=== PATIENT | female | born 1955 | race Caucasian/White ===

== ENCOUNTER 2017-09-22 17:08 | Inpatient (IN) | payer BC ==
--- NOTE | 2017-09-22 18:09 | CT ---
CT BRAIN: History: Fall with head injury and trauma. Technique: Noncontrast enhanced CT images of the brain were obtained. FINDINGS: The images demonstrate a moderate sized left frontal scalp hematoma. No underlying calvarial fracture s seen. The brain is unremarkable. No evidence of intracranial masses, hemorrhages or strokes seen. IMPRESSION: Left frontal scalp hematoma. Otherwise unremarkable CT brain. POS: [facility]
--- NOTE | 2017-09-22 18:25 | CT ---
CT CERVICAL SPINE: History: Fall with head trauma. Neck pain. FINDINGS: CT axial images are obtained with coronal and sagittal reconstructions obtained. There is disc space height loss with anterior and posterior osteophytes seen at C3-4, C4-5, C5-6, and C6-7. This is compatible with changes of spondylosis. No evidence of acute cervical spine fractures seen. IMPRESSION: Changes of spondylosis with no evidence of acute cervical spine pathology. The patient has had previo us surgical decompression of the mid and lower cervical spine. POS: [facility]
--- NOTE | 2017-09-22 19:07 | RAD ---
TWO VIEWS RIGHT SHOULDER: History: Fall. FINDINGS: AP and lateral images demonstrate a right humeral neck fracture. There is posterior angulation and so me lateral angulation of the distal fracture fragment. IMPRESSION: Right humeral neck fracture with impaction into the right humeral head. POS: [facility]
--- NOTE | 2017-09-22 19:08 | RAD ---
TWO VIEWS LEFT SHOULDER: History: Fall. Shoulder pain. FINDINGS: AP and lateral views of the left shoulder demonstrate a comminuted fracture involving the left jose l head and neck. The greater tuberosity is avulsed away from the rest of the left humeral head. The clavicle is intact. IMPRESSION: Comminuted left humeral head fracture. POS: [facility]
[2017-09-22] MEDS ORDERED: Morphine 4 MG/ML VIAL ONE (20:02)
[2017-09-22] MEDS ORDERED: Ketorolac Tromethamine 30 MG/ML VIAL ONE (20:30)
[2017-09-22] MEDS ORDERED: Ondansetron ODT 4 MG TAB PO PRN (22:01)
[2017-09-22] MEDS ORDERED: Ondansetron HCl/PF 4 MG/2 ML Vial IVP PRN (22:01)
[2017-09-22] MEDS ORDERED: hydrALAZINE 20 MG/ML VIAL SLOW IVP PRN (22:01)
[2017-09-22] MEDS ORDERED: HYDROcodone/Acetaminophen 10/325 mg Tablet PO PRN (22:01)
[2017-09-22] MEDS ORDERED: Dextrose 50% Abboject 50 ML SYRINGE SLOW IVP PRN (22:01)
[2017-09-22] MEDS ORDERED: Dextrose 5% in Water 1,000 ML IV PRN (22:01)
--- NOTE | 2017-09-22 22:03 | HP ---
DATE OF ADMISSION: 09/22/2017 REQUESTING PHYSICIAN: Dr. Morrell. ATTENDING SURGEON: Dr. Taylor. CONSULTATION: Orthopedics, Dr. Grier. HISTORY OF PRESENT ILLNESS: Patient is a 62-year-old morbidly obese woman who was walking in her alyson se when she tripped and fell, landing on her upper extremities. The patient had put both her arms ou t in front of her and landed on her elbows. The patient also reports hitting leg of a table on the w ay down hitting her head, but denied any loss of consciousness. The patient was brought by EMS to [facility] emergency room and underwent evaluation and examination was noted to have bilateral proximal jose l fractures, at which time we were asked to admit the patient and obtain Orthopedic consultation. ALLERGIES: ASPIRIN, the patient has taken IBUPROFEN in the past without difficulty. CURRENT MEDICATIONS: Alprazolam, atenolol, levothyroxine, Xarelto, Dyazide. PAST MEDICAL HISTORY: Atrial fibrillation, hypothyroidism, hypertension, anxiety, and depression. PAST SURGICAL HISTORY: Spinal surgery, hernia repair, appendectomy, and . SOCIAL HISTORY: Patient lives at home with her . She denies drug, tobacco, or alcohol use. REVIEW OF SYSTEMS: Ten-point review of systems is negative, unless otherwise stated. PHYSICAL EXAMINATION: VITAL SIGNS: Blood pressure 106/71, heart rate 92, respirations 17, oxygen saturation 100% on room a ir, temperature is 98.8. GENERAL: Patient is resting comfortably in bed. She is awake, alert, and oriented x3. [place] coma scale is 15. HEENT: Patient has a small contusion in ecchymotic area and the left side of her forehead, otherwise remainder is normocephalic. Eyes: Extraocular motions intact. PERRLA bilaterally. Ears are atrau matic without discharge. Nose atraumatic without discharge. Oropharynx is clear. NECK: Nontender. Trachea is midline. No JVD. CHEST: Clear to auscultation with good inspiratory and expiratory effort. HEART: Primarily regular rate and rhythm. ABDOMEN: Soft, flat, nontender with active bowel sounds. PELVIC: Stable. EXTREMITIES: Lower extremities are neurovascularly intact. Upper extremities are neurovascularly in tact with marked tenderness to both proximal humerus/shoulder area consistent with her fractures. Ca pillary refill in all extremities less than 3 seconds and pulses are 2+. BACK: By report is atraumatic and nontender. LABORATORY DATA: There are no labs currently. RADIOGRAPHS: CT of the brain without contrast shows left frontal scalp hematoma, otherwise unremarka ble CT of the brain. CT of the C-spine without contrast shows no evidence of acute cervical spine pa thology. Views of the right shoulder showed right humeral neck fracture with impaction into the righ t humeral head. Views of the left shoulder showed comminuted left humeral head fracture. ASSESSMENT AND PLAN: 1. Status post ground level fall. 2. Forehead contusion. 3. Bilateral proximal humerus fractures. 4. Pain secondary to acute trauma. 5. History of atrial fibrillation on Xarelto. 6. History of hypertension. 7. History of hypothyroidism. PLAN: Plan will be to admit the patient to the surgical floor. The patient's radiographs are review ed by Dr. Grier who states that due to her Xarelto and for planning stages, they were not planned on doing surgery tomorrow but most likely on Saturday. Otherwise, we will do pulmonary toilet, gastri tis, mechanical DVT prophylaxis, pain control, and physical and occupational therapy as permitted. T he evaluation, examination, laboratory and radiographic findings were discussed with Dr. Taylor at t he time of dictation.
[2017-09-22] MEDS: Sodium Chloride 0.9% 1,000 ML IV SCH (22:43)
[2017-09-22] MEDS: Morphine 4 MG/ML VIAL SLOW IVP PRN (22:44)
[2017-09-22] MEDS: Cyclobenzaprine 10 MG TAB PO PRN (22:44)
[2017-09-22] MEDS ORDERED: Acetaminophen 1,000 MG in Premix Bag 1 BAG IVPB SCH (23:59)
[2017-09-23] MEDS: Ibuprofen 800 MG TAB PO SCH ×4 (01:31→21:27)
[2017-09-23 01:38] VITALS: BMI 56.5
[2017-09-23] MEDS: Acetaminophen 500 MG TAB PO SCH ×6 (02:16→21:27)
[2017-09-23 05:02] LABS: #Eosinphils 0.1 thou/uL (0.0-0.7); #Lymphocytes 2.1 thou/uL (1.20-3.40); #Monocytes 1.2 thou/uL (0.11-0.59); #Neutrophils 8.8 thou/uL (1.40-6.50); %Basophils 0.1 % (0.0-1.0); %Eosinophils 0.5 % (0.0-10.0); %Lymphocytes 17.3 % (21.0-51.0); %Monocytes 10.1 % (0.0-10.0); Hemoglobin 12.4 g/dL (12.0-16.0); Mean Corpuscular HGB CONC 33.8 g/dL (32.0-36.0); Mean Corpuscular Hemoglobin 31.9 pg (27.0-31.0); Mean Corpuscular Volume 94.5 fl (81.0-99.0); Mean Platelet Volume 6.4 fL (7.4-10.4); Platelet Count 280 thou/uL (130-400); RBC Distribution Width 13.3 % (11.5-14.5); White Blood Cell (WBC) Count 12.3 thou/uL (4.8-10.8)
[2017-09-23 05:18] LABS: Anion Gap 9 mmol/L (10-20); BUN (Urea Nitrogen) 20 mg/dL (9.8-20.1); Calc. Creatinine Clearance 89 mL/min (70-130); Calcium 8.6 mg/dL (7.8-10.44); Carbon Dioxide 28 mmol/L (23-31); Chloride 100 mmol/L (98-107); Estimated GFR-MDRD 35; Glucose 121 mg/dL (80-115); Potassium 3.3 mmol/L (3.5-5.1); Sodium 134 mmol/L (136-145)
[2017-09-23] MEDS: Levothyroxine Sodium 100 MCG TAB PO SCH (06:15)
[2017-09-23] MEDS: Morphine 4 MG/ML VIAL SLOW IVP PRN ×2 (06:16→09:57)
[2017-09-23] MEDS: HYDROcodone/Acetaminophen 10/325 mg Tablet PO PRN ×2 (06:38→12:57)
--- NOTE | 2017-09-23 08:08 | CON ---
DATE OF CONSULTATION: 09/23/2017 CHIEF COMPLAINT: Bilateral shoulder pain. HISTORY OF PRESENT ILLNESS: Ms. Alejandro is a 62-year-old female who fell at home. She was ambulating and lost her balance. She fell forward. She landed on her outstretched arms. She had immediate gabbie n in the arms at the shoulders. She was unable to elevate or move the arms well after her fall. She did hit her head as well on the leg of a table. She denied loss of consciousness. She denied any d izziness. The patient was admitted to the hospital last night. She has had pain control. She is resting comfo rtably. She is reporting no new complaints or problems. ALLERGIES: ASPIRIN. MEDICATIONS: Alprazolam, atenolol, levothyroxine, Xarelto and Dyazide. PAST MEDICAL HISTORY: Atrial fibrillation, hypothyroidism, hypertension, anxiety, depression, and mo rbid obesity. PAST SURGICAL HISTORY: Previous lumbar spinal surgery, hernia repair, appendectomy and sect ion. SOCIAL HISTORY: The patient's is at the bedside. She denies tobacco, alcohol, or drug use. REVIEW OF SYSTEMS: Negative for 10 point review of systems other than positives in the HPI. IMAGES: X-rays of the bilateral shoulders demonstrate bilateral comminuted and displaced proximal hu merus fractures, 3-part. PHYSICAL EXAMINATION: VITAL SIGNS: Temperature is 97.7, pulse is 92, respiratory 16, oxygen saturation 95%, blood pressure 117/73. GENERAL: She is alert and oriented, no apparent distress. RESPIRATORY: Breathing comfortably. ABDOMEN: Soft, nontender, nondistended. MUSCULOSKELETAL: The patient's bilateral arms have pain with motion in the shoulders. She has swell ing. She has a very large obese arms and trunk. She reports decreased sensation in the first, secon d, and third digits bilaterally. This is chronic for her. She has a history of carpal tunnel syndro me. Palpable pulse peripherally bilaterally. She is able flex and extend the digits. IMPRESSION: Bilateral comminuted and displaced proximal humerus fractures in an obese female. The p atient also has a history of chronic bilateral carpal tunnel syndrome. PLAN: At this point, I think the patient would best be treated operatively. We will plan for open r eduction internal fixation of her proximal humerus fractures to restore anatomic alignment and promot e healing. Goal of surgery is to return her shoulders to full function. I have reviewed risks which include wound or healing problems. Avascular necrosis. Hardware failure, nonunion, malunion and ot hers. She is at risk for a pulmonary or cardiac complication as well. She wants to proceed with anabelle ateral proximal humerus fracture fixation as well as carpal tunnel release. She has requested that w elisha release her carpal tunnels given that she has longstanding chronic symptoms and these are very both ersome for her. I think this is warranted given that her carpal tunnel syndrome will likely get wors e over the next several months because she will have significant swelling into the wrist and hands re lated to her recent injury. She will decide if she wants to proceed with bilateral carpal tunnel rel ease, or pick one hand. I encouraged her to do 1 hand only, so that she has 1 good hand to use. She should be n.p.o. at midnight. She will have adequate pain control. She will have preoperative anti biotics and deep venous thrombosis prophylaxis. We will hold Xarelto until postoperatively.
[2017-09-23] MEDS: Atenolol 50 MG TAB PO SCH (09:56)
[2017-09-23] MEDS: Triamterene/Hydrochlorothiazide 37.5 mg/25 mg Tablet PO SCH (09:56)
[2017-09-23] MEDS: Venlafaxine HCl XR 150 MG CAP PO SCH (09:57)
[2017-09-23] MEDS: Famotidine 20 MG TAB PO SCH ×2 (09:57→21:27)
[2017-09-23] MEDS: Nystatin Cream 30 GM TUBE TOP SCH ×2 (09:59→21:27)
[2017-09-23] MEDS: Sodium Chloride 0.9% 1,000 ML IV SCH (10:03)
--- NOTE | 2017-09-23 13:58 | PRG ---
DATE OF SERVICE: 09/23/2017 SUBJECTIVE: The patient is hospital day #2 status post ground level fall which she sustained bilater al proximal humerus fractures. The patient did well overnight, had evaluation by Orthopedics this mo rning who recommend operative intervention on one of her shoulders initially. This morning, the awais ent is tolerating a diet. Her pain is controlled and she is due to work with Physical and Occupation al Therapy this morning. OBJECTIVE: VITAL SIGNS: Temperature is 97.7, heart rate 64, respirations 24, oxygen saturation is 94% on room a ir, blood pressure 117/73. GENERAL: The patient is resting comfortably in bed. She is awake, alert, oriented x3. [place] coma scale is 15. LUNGS: Clear to auscultation with good inspiratory and expiratory effort. HEART: Regular rate and rhythm. ABDOMEN: Soft, flat, nontender with active bowel sounds. EXTREMITIES: Neurovascularly intact. Capillary refill is less than 3 seconds. LABORATORY FINDINGS: White blood cell count 12.3, hemoglobin 12.4, hematocrit 36.9, platelets 280. Sodium 134, potassium 3.3, chloride 100, CO2 of 28, BUN 20, creatinine 1.50, glucose 121. No radiogr aphs to review this morning. ASSESSMENT: 1. Status post ground level fall. 2. Bilateral proximal humerus fractures. 3. Atrial fibrillation, rate controlled. PLAN: We will continue supportive care, make n.p.o. after midnight. IV hydration after midnight. C ontinue pain control and other supportive measures with rehab consultation submitted. The evaluation and examination were done with Dr. Lindsey this morning during rounds.
[2017-09-23] MEDS: Cyclobenzaprine 10 MG TAB PO PRN (15:43)
[2017-09-24] MEDS: Acetaminophen 500 MG TAB PO SCH ×7 (01:23→23:08)
[2017-09-24] MEDS: Sodium Chloride 0.9% 1,000 ML IV SCH ×3 (01:25→16:44)
[2017-09-24] MEDS: Morphine 4 MG/ML VIAL SLOW IVP PRN (04:47)
[2017-09-24] MEDS: HYDROcodone/Acetaminophen 10/325 mg Tablet PO PRN (04:47)
[2017-09-24] MEDS: Levothyroxine Sodium 100 MCG TAB PO SCH (05:15)
[2017-09-24] MEDS ORDERED: ePHEDrine/0.9% NaCl/PF SYRINGE 50 mg/10 ml ONE (06:52)
[2017-09-24] MEDS ORDERED: Calcium Chloride 1 GM/10 ML Abboject SYRINGE ONE (06:52)
[2017-09-24] MEDS ORDERED: PROPOFOL 200 MG/20 ML VIAL ONE (06:52)
[2017-09-24] MEDS ORDERED: Lidocaine 1% PF 5 ML VIAL ONE (06:52)
[2017-09-24] MEDS ORDERED: Glycopyrrolate 0.2 MG/ML 5 ML SYRINGE ONE (06:52)
[2017-09-24] MEDS ORDERED: PHENYLEPHRINE-NS 100 MCG/ML 10 ML SYRINGE ONE (06:52)
[2017-09-24] MEDS: Ibuprofen 800 MG TAB PO SCH ×3 (07:00→22:57)
[2017-09-24] MEDS: Nystatin Cream 30 GM TUBE TOP SCH ×2 (08:23→23:03)
[2017-09-24] MEDS: Venlafaxine HCl XR 150 MG CAP PO SCH (08:25)
[2017-09-24] MEDS: Famotidine 20 MG TAB PO SCH ×2 (08:26→22:57)
[2017-09-24] MEDS: Atenolol 50 MG TAB PO SCH (11:17)
[2017-09-24] MEDS: Triamterene/Hydrochlorothiazide 37.5 mg/25 mg Tablet PO SCH (11:17)
[2017-09-24] MEDS ORDERED: CEFAZOLIN/Water 2 GM/20 ML SYRINGE SLOW IVP SCH (12:00)
--- NOTE | 2017-09-24 12:07 | PQF ---
CLINICAL DOCUMENTATION IMPROVEMENT CLARIFICATION FORM: ICD-10 Updated PLEASE DO AN ADDENDUM TO THE PROGRESS NOTE WITH ANY DOCUMENTATION UPDATES OR ADDITIONS AND CARRY THROUGH TO DC SUMMARY. THANK YOU. DATE: 09/24 ATTN: HAFSA LOPEZ PA-C Please exercise your independent, professional judgment in responding to the clarification form. Clinical indicators are provided on the bottom of this form for your review Please check appropriate box(s): ___X____ I (concur) with the Wound Care findings as stated below. [ ] Pressure Ulcer: (Stage I: Erythema; Stage II: Partial thickness; Stage III : Full thickness; Stage IV: Necrosis to muscle/bone) [ ] Location: POA: [ ] Yes [ ] No [ ] Unable to determine Stage (I to IV): (Left Right Bilateral N/A ) [ ] Location: POA: [ ] Yes [ ] No [ ] Unable to determine Stage (I to IV): (Left Right Bilateral N/A ) [ ] No pressure ulcer diagnosis [ ] Other diagnosis [ ] Unable to determine In addition, please specify: Present on Admission (POA): [ ] Yes [ ] No [ X ] Unable to determine For continuity of documentation, please document condition throughout progress notes and discharge summary. Thank You. CLINICAL INDICATORS - SIGNS / SYMPTOMS / LABS WOUND CARE DOCUMENTATION 09/23: STAGE II PRESSURE ULCER TO RIGHT & LEFT BUTTOCKS RISK FACTOR: MORBID OBESITY (BMI 56.5) B PROXIMAL HUMERUS FX TREATMENTS: WOUND CARE CONSULT SPECIALTY MATTRESS THANK YOU! Val (This form is maintained as a part of the permanent medical record) 2014 [employer]. All Rights Reserved Val Cook RN, BSN [email or web address] Office: [phone] [facility]
[2017-09-24] MEDS ORDERED: CEFAZOLIN/Water 2 GM/20 ML SYRINGE ONE (16:08)
[2017-09-24] MEDS ORDERED: Fentanyl 250 MCG/5 ML VIAL ONE (16:26)
[2017-09-24] MEDS ORDERED: Midazolam HCl 2 mg/2 ml Vial ONE (16:26)
[2017-09-24] MEDS ORDERED: HYDROmorphone 2 MG/ML VIAL SLOW IVP PRN (18:50)
[2017-09-24] MEDS ORDERED: Ondansetron HCl/PF 4 MG/2 ML Vial IVP PRN (18:50)
[2017-09-24] MEDS ORDERED: Morphine Sulfate 2 MG/ML SYRINGE SLOW IVP PRN (18:50)
[2017-09-24] MEDS ORDERED: Promethazine HCl 25 MG/ML VIAL SLOW IVP PRN (18:50)
--- NOTE | 2017-09-24 19:23 | PRG ---
DATE OF SERVICE: 09/24/2017 SUBJECTIVE: The patient is hospital day 3 status post ground-level fall in which she sustained a anabelle ateral proximal humerus fractures. Overnight, she had no issue. She stated that her pain was contro lled. She has been n.p.o. since midnight in preparation for surgical intervention by Orthopedics thi s afternoon. OBJECTIVE: VITAL SIGNS: Temperature is 97.5, heart rate 75, blood pressure 102/68, respirations 16, oxygen satu ration 94% on room air. GENERAL: The patient is resting comfortably in bed. She is awake, alert, oriented x3. [place] coma scale is 15. HEENT: Unremarkable. LUNGS: Clear to auscultation with good inspiratory and expiratory effort. HEART: Regular rate and rhythm. ABDOMEN: Soft, flat, nontender with hypoactive bowel sounds. EXTREMITIES: Neurovascularly intact x4. LABORATORY DATA: There are no labs or radiographs to review this morning. ASSESSMENT AND PLAN: 1. Status post ground-level fall. 2. Status post bilateral proximal humerus fractures. PLAN: Plan will be to continue supportive care. Await surgical procedure by Orthopedics. Begin phy sical and occupational therapy and we discussed possible rehab placement postoperatively.
--- NOTE | 2017-09-24 20:51 | RAD ---
LEFT HUMERUS RADIOGRAPHS TWO VIEWS: 09/24/2017 PROVIDED CLINICAL HISTORY: ORIF. FINDINGS: Spot fluoroscopic intra-procedural views of the left proximal humerus demonstrate sideplate and screw fixation of the previously described left proximal humeral fracture. IMPRESSION: As above. POS: [facility]
--- NOTE | 2017-09-24 21:01 | RAD ---
PORTABLE CHEST: 09/24/2017 PROVIDED CLINICAL HISTORY: Central line placement. COMPARISON: None. FINDINGS: The cardiac silhouette appears enlarged. A right IJ central line is noted, the tip of which projects in the region of the SVC. No definite focal consolidation, pleural fluid, or pneumothorax apparent. IMPRESSION: Cardiomegaly without evidence for an acute cardiopulmonary process. POS: [facility]
--- NOTE | 2017-09-24 21:55 | RAD ---
RIGHT SHOULDER RADIOGRAPHS TWO VIEWS: 09/24/2017 PROVIDED CLINICAL HISTORY: ORIF. FINDINGS: Spot fluoroscopic intra-procedural images demonstrate lateral sideplate and screw fixation of the pre viously described humeral fracture. IMPRESSION: As above. POS: [facility]
--- NOTE | 2017-09-24 23:50 | OP ---
DATE OF OPERATION: 09/24/2017 OPERATIONS: 1. Right proximal humerus fracture, open reduction and internal fixation. 2. Right carpal tunnel release. 3. Left proximal humerus fracture, open reduction and internal fixation. PREOPERATIVE DIAGNOSES: Bilateral proximal humerus fracture with displacement and right carpal tunne l syndrome. POSTOPERATIVE DIAGNOSES: Bilateral proximal humerus fracture with displacement and right carpal tunn el syndrome. COMPLICATIONS: None. ESTIMATED BLOOD LOSS: 200 mL. SURGEON: Landry Georges M.D. GROCERY BAGGER: Nikhil Mercado PA-C IMPLANTS: Two Synthes 3-hole proximal humeral plates with locking and nonlocking screws were used. INDICATIONS: Ms. Alejandro is a 62-year-old female who fell. She fractured bilateral proximal humerus. She also has a long history of carpal tunnel syndrome with severe symptoms. She has been indicated for right carpal tunnel release and bilateral proximal humerus fracture, open reduction and internal fixation to restore anatomic alignment, promote healing and relief pain. Risks have been reviewed in detail. She has elected to proceed with the operation. Risks to include avascular necrosis, hardwa re failure, nonunion, malunion, nerve or vascular injury and others. DESCRIPTION OF PROCEDURE: Ms. Alejandro was identified in the preoperative holding area. Her correct ex tremities were marked. She was carried to the operating room. She was positioned supine. General a nesthesia was induced. A multidisciplinary timeout was performed. The right upper extremity was pre pped and draped in sterile fashion. We began the procedure with a deltopectoral approach to the humerus. We then dissected down through the subcutaneous tissues to the deltopectoral interval, which was opened bluntly. We retracted the d eltoid muscle laterally carefully protecting the cephalic vein. At this point, we exposed the underl nati proximal humerus fracture. We manipulated the fracture fragments after irrigating and clearing the bony edges. Once we had an anatomic reduction, we held this with K-wire fixation. We then appli ed our proximal humeral plate to the humerus itself and held these with K-wires. We took x-ray image s evaluating her fracture alignment. Once we had an acceptable position for our plate, we proceeded with fixation. We placed multiple screws proximally and distally, locking the plate to the bone. Ag ain, we took x-ray images throughout this procedure confirming there was no prominent hardware. At t his point, we thoroughly irrigated and began closure. A 0 Vicryl suture was used. A 2-0 Vicryl sutu re and italo for the skin. At this point, we moved to the hand. We made a 2.5 cm incision over the palm. We dissected down thr ough the subcutaneous tissues to the fascia of the palm. The palmar fascia was incised. We then spl it the carpal tunnel ligament sharply with a 15 blade. At this point, we used Metzenbaum scissors to transect the carpal tunnel ligament proximally using a push-cut technique. We spread the tissues di stally fully releasing the carpal tunnel. We thoroughly irrigated and obtained hemostasis. We then closed with a 4-0 nylon suture. We then moved to the left proximal humerus fracture. We made a deltopectoral approach. We dissected down through the deltopectoral interval, protecting the cephalic vein. We exposed the underlying pr oximal humerus fracture. There were multiple comminuted fragments. At this point, we manipulated ou r fragments as well as pulling traction on the limb to reduce the fracture back into its anatomic pos ition. We then placed a Synthes locking plate laterally on the cortex of the humerus. We held this in position with a K-wire. We placed a distal nonlocking screw. At this point, we checked x-ray harmony ging confirming plate placement and hardware as well as fracture alignment. We then filled all screw holes appropriately with locking screws. We took final images confirming there was no hardware prom inent. At this point, we thoroughly irrigated with copious lavage. We then closed with 2-0 suture, 0 Vicryl suture and italo for the skin. A sterile dressing was applied. The patient was taken to the recovery room in good condition without complication at this point.
[2017-09-25] MEDS: CEFAZOLIN/Water 2 GM/20 ML SYRINGE SLOW IVP SCH ×3 (00:17→16:16)
[2017-09-25] MEDS: Sodium Chloride 0.9% 1,000 ML IV SCH ×4 (00:18→22:48)
[2017-09-25] MEDS: Acetaminophen 500 MG TAB PO SCH ×6 (03:46→22:42)
[2017-09-25 04:13] LABS: #Lymphocytes 1.3 thou/uL (1.20-3.40); #Neutrophils 10.6 thou/uL (1.40-6.50); %Eosinophils 0.3 % (0.0-10.0); %Lymphocytes 10.4 % (21.0-51.0); %Monocytes 7.7 % (0.0-10.0); %Neutrophils 81.6 % (42.0-75.0); Hemoglobin 10.8 g/dL (12.0-16.0); Mean Corpuscular HGB CONC 34.4 g/dL (32.0-36.0); Mean Corpuscular Hemoglobin 32.6 pg (27.0-31.0); Mean Corpuscular Volume 94.9 fl (81.0-99.0); Mean Platelet Volume 6.4 fL (7.4-10.4); Platelet Count 285 thou/uL (130-400); RBC Distribution Width 13.1 % (11.5-14.5); Red Blood Cell (RBC) Count 3.29 mill/uL (4.20-5.40); White Blood Cell (WBC) Count 12.9 thou/uL (4.8-10.8)
[2017-09-25 04:55] LABS: Anion Gap 9 mmol/L (10-20); BUN (Urea Nitrogen) 28 mg/dL (9.8-20.1); Calc. Creatinine Clearance 48 mL/min (70-130); Calcium 8.4 mg/dL (7.8-10.44); Carbon Dioxide 25 mmol/L (23-31); Chloride 107 mmol/L (98-107); Estimated GFR-MDRD 17; Glucose 98 mg/dL (80-115); Magnesium 2.1 mg/dL (1.6-2.6); Phosphorus 5.5 mg/dL (2.3-4.7); Potassium 4.3 mmol/L (3.5-5.1); Sodium 137 mmol/L (136-145)
[2017-09-25] MEDS: Ibuprofen 800 MG TAB PO SCH ×2 (06:43→16:04)
[2017-09-25] MEDS: Levothyroxine Sodium 100 MCG TAB PO SCH (06:43)
[2017-09-25] MEDS: Famotidine 20 MG TAB PO SCH (09:23)
[2017-09-25] MEDS: Nystatin Cream 30 GM TUBE TOP SCH ×3 (09:24→20:37)
[2017-09-25] MEDS: Atenolol 50 MG TAB PO SCH (09:24)
[2017-09-25] MEDS: Venlafaxine HCl XR 150 MG CAP PO SCH (09:25)
[2017-09-25] MEDS: Triamterene/Hydrochlorothiazide 37.5 mg/25 mg Tablet PO SCH (09:34)
[2017-09-25] MEDS ORDERED: Albumin 25% 25 GM/100 ML BOT IVPB ONE (10:55)
[2017-09-25] MEDS ORDERED: Morphine CADD 1 MG/ML CADD IV PRN (11:48)
[2017-09-25] MEDS ORDERED: Ondansetron HCl/PF 4 MG/2 ML Vial IVP PRN (11:48)
[2017-09-25] MEDS ORDERED: diphenhydrAMINE 25 MG CAP PO PRN (11:48)
[2017-09-25] MEDS ORDERED: Zolpidem Tartrate 5 MG TAB PO PRN (11:48)
[2017-09-25] MEDS ORDERED: diphenhydrAMINE 50 MG/ML VIAL IM/IV PRN (11:48)
[2017-09-25] MEDS ORDERED: Naloxone HCl 0.4 mg/ml Vial IV PRN (11:48)
[2017-09-25] MEDS ORDERED: Promethazine HCl 25 MG/ML VIAL IM PRN (11:48)
[2017-09-25] MEDS ORDERED: Hydrocortisone Sod Succ/PF 100 mg/2 ml Vial IVP SCH (12:30)
--- NOTE | 2017-09-25 19:38 | PRG ---
DATE OF SERVICE: 09/25/2017 SUBJECTIVE: The patient is currently on the surgical floor. She is hospital day #4, postop day #1 s tatus post ground level fall in which she sustained bilateral proximal humerus fractures. Yesterday, she underwent her procedures. She tolerated these procedures well. This morning, she has been some what hypotensive, but not symptomatic related to it and currently her pain is controlled. She is noelle erating diet this morning, but has not worked with physical or occupational therapy yet. OBJECTIVE: VITAL SIGNS: Temperature is 97.9, heart rate 75, blood pressure 92/60, respirations 16, oxygen satur ation 99% on 3 liters via nasal cannula. GENERAL: The patient is resting in bed. She is awake, alert, and oriented x3. [place] coma scale i s 15. HEENT: Unremarkable. LUNGS: Clear to auscultation with good inspiratory and expiratory effort. HEART: Regular rate and rhythm. ABDOMEN: Soft, flat with active bowel sounds. Postop dressings are clean, dry, and intact. LABORATORY FINDINGS: White blood cell count 12.9, hemoglobin 10.8, hematocrit 31.3, platelets 285. Sodium 137, potassium 4.3, chloride 107, CO2 of 25, BUN 28, creatinine 2.80, glucose 98, magnesium 2. 1, phosphorus 5.5. No radiographs to review this morning. ASSESSMENT AND PLAN: 1. Status post ground level fall. 2. Status post open reduction internal fixation of bilateral proximal humerus fractures. 3. Bilateral carpal tunnel release. 4. Acute on chronic kidney injury. Plan will be to continue IV hydration, pain control, physical and occupational therapy and rehab scre ening. Repeat labs in the morning.
[2017-09-25] MEDS: Enoxaparin Sodium 40 MG/0.4 ML SYRINGE SC SCH (19:51)
--- NOTE | 2017-09-25 20:32 | EKG ---
Test Reason : PRE-OP Blood Pressure : / mmHG Vent. Rate : 089 BPM Atrial Rate : 085 BPM P-R Int : 000 ms QRS Dur : 090 ms QT Int : 378 ms P-R-T Axes : 000 -03 -06 degrees QTc Int : 459 ms Atrial fibrillation with premature ventricular or aberrantly conducted complexes Abnormal ECG When compared with ECG of 13-OCT-2009 07:54, QT has lengthened Confirmed by GENARO KERR, SCarmelita ([id number]) on 09/25/2017 8:31:38 PM Referred By: YOHANNES Confirmed By:DR. Lv ALM MD
[2017-09-25] MEDS: Hydrocortisone Sod Succ/PF 100 mg/2 ml Vial IVP SCH (22:42)
[2017-09-26] MEDS: Ibuprofen 800 MG TAB PO SCH ×4 (00:22→23:36)
[2017-09-26] MEDS: CEFAZOLIN/Water 2 GM/20 ML SYRINGE SLOW IVP SCH ×2 (00:23→08:10)
[2017-09-26] MEDS: Acetaminophen 500 MG TAB PO SCH ×6 (03:16→21:59)
[2017-09-26] MEDS: Hydrocortisone Sod Succ/PF 100 mg/2 ml Vial IVP SCH ×3 (06:31→21:40)
[2017-09-26] MEDS: Levothyroxine Sodium 100 MCG TAB PO SCH (06:31)
[2017-09-26] MEDS: Atenolol 50 MG TAB PO SCH (08:10)
[2017-09-26] MEDS: Triamterene/Hydrochlorothiazide 37.5 mg/25 mg Tablet PO SCH (08:11)
[2017-09-26] MEDS: Famotidine 20 MG TAB PO SCH (08:11)
[2017-09-26] MEDS: Nystatin Cream 30 GM TUBE TOP SCH ×2 (08:11→21:42)
[2017-09-26] MEDS: Venlafaxine HCl XR 150 MG CAP PO SCH (08:11)
[2017-09-26 08:38] LABS: #Monocytes 0.7 thou/uL (0.11-0.59); #Neutrophils 7.8 thou/uL (1.40-6.50); %Eosinophils 0.4 % (0.0-10.0); %Lymphocytes 10.3 % (21.0-51.0); %Monocytes 7.7 % (0.0-10.0); %Neutrophils 81.5 % (42.0-75.0); Hemoglobin 9.4 g/dL (12.0-16.0); Mean Corpuscular HGB CONC 33.8 g/dL (32.0-36.0); Mean Corpuscular Hemoglobin 32.1 pg (27.0-31.0); Mean Corpuscular Volume 95.2 fl (81.0-99.0); Mean Platelet Volume 6.6 fL (7.4-10.4); Platelet Count 249 thou/uL (130-400); RBC Distribution Width 12.9 % (11.5-14.5); Red Blood Cell (RBC) Count 2.91 mill/uL (4.20-5.40); White Blood Cell (WBC) Count 9.6 thou/uL (4.8-10.8)
[2017-09-26 08:43] LABS: Anion Gap 10 mmol/L (10-20); BUN (Urea Nitrogen) 25 mg/dL (9.8-20.1); Calc. Creatinine Clearance 64 mL/min (70-130); Calcium 8.4 mg/dL (7.8-10.44); Carbon Dioxide 25 mmol/L (23-31); Chloride 106 mmol/L (98-107); Estimated GFR-MDRD 24; Glucose 104 mg/dL (80-115); Magnesium 2.1 mg/dL (1.6-2.6); Phosphorus 4.7 mg/dL (2.3-4.7); Potassium 3.9 mmol/L (3.5-5.1); Sodium 137 mmol/L (136-145)
[2017-09-26] MEDS: Senokot S 8.6-50 MG TAB PO SCH ×2 (11:35→21:42)
[2017-09-26] MEDS: Polyethylene Glycol 3350 17 GM Packet PO SCH (11:35)
[2017-09-26] MEDS: Sodium Chloride 0.9% 1,000 ML IV SCH ×3 (15:21→23:35)
--- NOTE | 2017-09-26 17:08 | PRG ---
DATE OF SERVICE: 09/26/2017 SUBJECTIVE: The patient is hospital day #5, status post ground level fall in which she sustained anabelle ateral proximal humerus fracture. She is postop day #2 from her operative intervention of both shoul ders and her right carpal tunnel, which they released during her procedures. The patient tolerated t he procedure well and overnight she has had no issues, her pain is controlled and she is starting to work with physical and occupational therapy. We are awaiting rehab placement decision. The patient is also tolerating her diet. OBJECTIVE: VITAL SIGNS: Temperature is 98.1, heart rate 77, blood pressure 105/68, respirations 16, oxygen satu ration is 99% on 2 liters via nasal cannula. GENERAL: The patient is resting comfortably in bed. She is awake, alert, and oriented x3. [place] coma scale is 15. HEENT: Unremarkable. LUNGS: Clear to auscultation with good inspiratory and expiratory effort. HEART: Regular rate and rhythm. ABDOMEN: Nontender, active bowel sounds. EXTREMITIES: Neurovascularly intact x4. Postop dressings are clean, dry, and intact. LABORATORY DATA: White blood cell count 9.6, hemoglobin 9.4, hematocrit 27.7, platelets 249. Sodium 137, potassium 3.9, chloride 106, CO2 of 25, BUN 25, creatinine 2.09, magnesium 2.1, phosphorus 4.7, glucose 104. ASSESSMENT AND PLAN: 1. Status post ground level fall. 2. Status post open reduction and internal fixation of bilateral proximal humerus fractures. 3. Status post carpal tunnel release of right upper extremity. 4. Acute on chronic kidney injury. Plan will be to continue hydration, pain control, supportive care and await final placement decision.
[2017-09-26] MEDS: Enoxaparin Sodium 40 MG/0.4 ML SYRINGE SC SCH (21:40)
[2017-09-27] MEDS: Acetaminophen 500 MG TAB PO SCH ×4 (04:35→15:18)
[2017-09-27] MEDS: Ibuprofen 800 MG TAB PO SCH ×2 (06:47→15:18)
[2017-09-27] MEDS: Hydrocortisone Sod Succ/PF 100 mg/2 ml Vial IVP SCH (06:47)
[2017-09-27] MEDS: Levothyroxine Sodium 100 MCG TAB PO SCH (06:47)
[2017-09-27] MEDS: Sodium Chloride 0.9% 1,000 ML IV SCH (07:34)
[2017-09-27] MEDS: Triamterene/Hydrochlorothiazide 37.5 mg/25 mg Tablet PO SCH (08:27)
[2017-09-27] MEDS: Venlafaxine HCl XR 150 MG CAP PO SCH (08:27)
[2017-09-27] MEDS: Famotidine 20 MG TAB PO SCH (08:28)
[2017-09-27] MEDS: Atenolol 50 MG TAB PO SCH (08:28)
[2017-09-27] MEDS: Polyethylene Glycol 3350 17 GM Packet PO SCH (08:29)
[2017-09-27] MEDS: Senokot S 8.6-50 MG TAB PO SCH (08:29)
[2017-09-27] MEDS: Nystatin Cream 30 GM TUBE TOP SCH (08:29)
[2017-09-27] MEDS ORDERED: Milk Of Magnesia 30 ML UDCUP PO SCH (08:30)
[2017-09-27 08:48] LABS: #Eosinphils 0.1 thou/uL (0.0-0.7); #Lymphocytes 1.3 thou/uL (1.20-3.40); #Monocytes 0.7 thou/uL (0.11-0.59); #Neutrophils 6.5 thou/uL (1.40-6.50); %Eosinophils 0.9 % (0.0-10.0); %Lymphocytes 15.5 % (21.0-51.0); %Monocytes 7.8 % (0.0-10.0); %Neutrophils 75.8 % (42.0-75.0); Hemoglobin 9.2 g/dL (12.0-16.0); Mean Corpuscular HGB CONC 33.8 g/dL (32.0-36.0); Mean Corpuscular Volume 94.9 fl (81.0-99.0); Platelet Count 249 thou/uL (130-400); RBC Distribution Width 13.4 % (11.5-14.5); Red Blood Cell (RBC) Count 2.86 mill/uL (4.20-5.40); White Blood Cell (WBC) Count 8.6 thou/uL (4.8-10.8)
[2017-09-27] MEDS ORDERED: Bisacodyl 10 MG SUPP PR SCH (09:00)
[2017-09-27 09:11] LABS: Anion Gap 11 mmol/L (10-20); BUN (Urea Nitrogen) 26 mg/dL (9.8-20.1); Calc. Creatinine Clearance 75 mL/min (70-130); Calcium 8.5 mg/dL (7.8-10.44); Carbon Dioxide 22 mmol/L (23-31); Chloride 106 mmol/L (98-107); Estimated GFR-MDRD 29; Glucose 103 mg/dL (80-115); Magnesium 1.9 mg/dL (1.6-2.6); Phosphorus 2.7 mg/dL (2.3-4.7); Potassium 3.3 mmol/L (3.5-5.1); Sodium 136 mmol/L (136-145)
[2017-09-27 15:36] VITALS: BP 125/74; TEMP 97.5
--- NOTE | 2017-09-27 16:24 | PRG ---
DATE OF SERVICE: 09/27/2017 ATTENDING PHYSICIAN: Dr. Lindsey. SUBJECTIVE: The patient is hospital day #6 status post ground level fall in which she sustained bila teral proximal humerus fractures. She is postoperative day #3 from her operative intervention of bot h shoulders and her right carpal tunnel, which they released during her procedures. The patient noellee rated the procedure well and she has had no postoperative issues. Her pain has been well controlled. She has started mobilizing with physical and occupational therapy. She has not had a bowel movemen t at this point; however, is tolerating regular diet without any nausea. OBJECTIVE: VITAL SIGNS: Temperature 98.5, pulse 71, respirations 14, O2 sat 97% room air, blood pressure 136/70 . GENERAL: Obese female sitting up in chair, no acute distress. HEENT: Atraumatic, normocephalic. PULMONARY/LUNGS: Bilateral breath sounds clear to auscultation. No respiratory distress. HEART: Regular rate and rhythm. ABDOMEN: Soft, nontender, nondistended. EXTREMITIES: Neurovascular intact x4, postoperative splint to bilateral right upper extremity clean, dry, and intact. Bilateral upper extremities and sling. NEUROLOGIC: GCS 15. Awake, alert, oriented x3. LABORATORY DATA: CBC: WBC 8.6, RBC 2.86, hemoglobin stable at 9.2, hematocrit 27.1, platelets 249. Chemistry: Sodium 136, potassium 3.3, chloride 106, carbon dioxide 22, BUN 26, creatinine 1.78, colin sphorus 2.7, mag 1.9. ASSESSMENT: 1. Status post ground level fall. 2. Status post open reduction and internal fixation bilateral proximal humerus fractures. 3. Status post carpal tunnel release of right upper extremity. 4. Acute on chronic kidney injury, creatinine improving. 5. No bowel movement postoperatively. PLAN: 1. Continue transition to oral pain medication only. 2. Discontinue IV fluid. 3. Increased bowel regimen to stimulate bowel movement. 4. Lovenox for DVT prophylaxis. 5. Pepcid for gastritis prophylaxis. 6. Discontinue IV hydrocortisone. 7. Continue PT and OT. 8. Replace electrolytes. 9. Anticipate discharge to rehab when approval obtained. Case management following. The patient was seen and examined with Dr. Lindsey, who agrees with plan.
[2017-09-27] MEDS ORDERED: Rivaroxaban 10 MG TAB PO SCH (17:00)
[2017-09-27] MEDS ORDERED: Cepastat Lozenges 1 LOZ PO PRN (17:07)
== END 2017-09-27 19:25 | DRG 493 ==
LOC: ERS 17:08 → SURG A 20:13 → OBSVTOIN 20:13
PROVIDERS: ADMIT Surgery; ATTEND Surgery
PROC: 0PSD04Z Reposition Left Humeral Head with Internal Fixation Device, Open Approach (ICD-10-PCS; principal; 2017-09-24)
PROC: 0PSC04Z Reposition Right Humeral Head with Internal Fixation Device, Open Approach (ICD-10-PCS; 2017-09-24)
PROC: 01N50ZZ Release Median Nerve, Open Approach (ICD-10-PCS; 2017-09-24)
DX: S42.202A Unspecified fracture of upper end of left humerus, initial encounter for closed fracture (principal); S42.201A Unspecified fracture of upper end of right humerus, initial encounter for closed fracture; Z68.43 Body mass index [BMI] 50.0-59.9, adult; N17.9 Acute kidney failure, unspecified; W01.0XXA Fall on same level from slipping, tripping and stumbling without subsequent striking against object, initial encounter; Y92.009 Unspecified place in unspecified non-institutional (private) residence as the place of occurrence of the external cause; S00.83XA Contusion of other part of head, initial encounter; G89.11 Acute pain due to trauma; E66.01 Morbid (severe) obesity due to excess calories; I48.91 Unspecified atrial fibrillation; Z79.01 Long term (current) use of anticoagulants; E03.9 Hypothyroidism, unspecified; Z88.6 Allergy status to analgesic agent; F41.9 Anxiety disorder, unspecified; F32.9 Major depressive disorder, single episode, unspecified; L89.322 Pressure ulcer of left buttock, stage 2; L89.312 Pressure ulcer of right buttock, stage 2; N18.9 Chronic kidney disease, unspecified; I12.9 Hypertensive chronic kidney disease with stage 1 through stage 4 chronic kidney disease, or unspecified chronic kidney disease; R40.2412 Glasgow coma scale score 13-15, at arrival to emergency department; G56.01 Carpal tunnel syndrome, right upper limb
CPT/HCPCS: 36415; 70450; 71045; 72125; 76001; 80048; 80400; 83735; 84100; 85014; 85018; 85025; 86850; 86900; 86901; 93005; 93010; 96374; 96375; C1713; G0390; G8978-GP-CM; G8979-GP-CK; G8981-GO-CL; G8982-GO-CJ; J0131; J1644; J1650; J1720; J1885; J2001; J2250; J2270; J2704; J3010; P9045

== ENCOUNTER 2018-05-01 10:25 | Day surgery (SDC) | payer BC ==
[2018-04-30 13:28] VITALS: BMI 54.4
[2018-05-01] MEDS ORDERED: CEFAZOLIN 2 GM/50 ML BAG ONE (13:01)
[2018-05-01 13:50] LABS: Anion Gap 17 mmol/L (10-20); BUN (Urea Nitrogen) 14 mg/dL (9.8-20.1); Calc. Creatinine Clearance 127 mL/min (70-130); Calcium 10.1 mg/dL (7.8-10.44); Carbon Dioxide 22 mmol/L (23-31); Chloride 102 mmol/L (98-107); Estimated GFR-MDRD 54; Glucose 109 mg/dL (80-115); Sodium 137 mmol/L (136-145)
[2018-05-01] MEDS ORDERED: Fentanyl 100 MCG/2 ML VIAL ONE ×4 (14:29→16:14)
[2018-05-01] MEDS ORDERED: Bupivacaine/Epinephrine 0.25% 30 ML VIAL ONE (14:32)
[2018-05-01] MEDS ORDERED: Morphine 4 MG/ML VIAL ONE (15:35)
[2018-05-01] MEDS ORDERED: Morphine 2 MG/ML SYRINGE ONE (15:53)
--- NOTE | 2018-05-01 17:43 | RAD ---
TWO VIEWS OF THE LEFT HUMERUS: 05/01/18 COMPARISON: 09/24/17 HISTORY: Hardware removal from the humerus. FINDINGS/IMPRESSION: Two views limited intraoperative fluoroscopic views of the left humerus were submitted for interpreta tion. The previously seen hardware has been removed. There is remodeling of the proximal humerus whic h represents a remote humeral fracture. No significant degenerative change is seen in the glenohumera l joint. POS: [facility]
[2018-05-01] MEDS ORDERED: Ondansetron PF 4 MG/2 ML Vial ONE (20:06)
[2018-05-01] MEDS ORDERED: Dexamethasone 20 MG/5 ML VIAL ONE (20:06)
[2018-05-01] MEDS ORDERED: Succinylcholine Chloride 20 MG/ML 10 ml SYRINGE FS ONE (20:06)
[2018-05-01] MEDS ORDERED: PROPOFOL 200 MG/20 ML VIAL ONE (20:06)
--- NOTE | 2018-05-01 22:02 | OP ---
DATE OF PROCEDURE: 05/01/2018 OPERATION: 1. Left proximal humerus hardware removal. 2. Left carpal tunnel release. PREOPERATIVE DIAGNOSES: History of left proximal humerus fracture with prominent hardware and hardware related pain, and left carpal tunnel syndrome. POSTOPERATIVE DIAGNOSES: History of left proximal humerus fracture with prominent hardware and hardware related pain, and left carpal tunnel syndrome. COMPLICATIONS: None. ESTIMATED BLOOD LOSS: 100 mL. ANESTHESIA: General plus local. RENTAL MANAGEMENT TRAINEE: Nikhil Mercado PA-C. IMPLANTS: None. INDICATIONS: Ms. Alejandro is a 63-year-old female who fell and fractured her bilateral proximal humerus bones. She was treated with open reduction and internal fixation. She initially did well; however, she began having increased pain in the left shoulder. She has been found to have prominence of screws into the left glenohumeral joint. She also has advanced left carpal tunnel syndrome. She was indicated for the above procedures to restore function and relieve pain. Risks have been reviewed in detail. She elected to proceed with the operation. DESCRIPTION OF OPERATION: Ms. Alejandro was identified in the preoperative holding area. Her correct extremity was marked. She was carried to the operating room. She was positioned supine. General anesthesia was induced. A multidisciplinary time-out was performed. The left upper extremity was prepped and draped in sterile fashion. We began the procedure with a deltopectoral approach through the patient's previous scar. We dissected down through the subcutaneous tissues and developed the deltopectoral interval. We protected the cephalic vein. We exposed the underlying proximal humeral plate. The plate was removed after all screws were removed. We then smoothed the bone with a rongeur and thoroughly irrigated with copious lavage. The shoulder was manipulated for motion as well. We took x-ray images confirming that the bone was well healed and that all hardware was removed. At this point, we moved to the hand. We performed an incision over the palm of the hand. We dissected down through the subcutaneous tissues to the palmar fascia. The fascia was then incised. This released the carpal tunnel. We used a push-cut scissor technique proximally fully releasing the tunnel proximally as well as spreading the tissues distally. We obtained hemostasis and then closed the skin with a 4-0 nylon suture. A sterile dressing was applied. The patient was taken to the recovery room in good condition without complication. Job ID: [id number]
== END 2018-05-01 17:31 | disposition home or self-care (01) ==
LOC: SDC 10:25
PROVIDERS: ATTEND Orthopaedic Surgery
PROC: 0PPD04Z Removal of Internal Fixation Device from Left Humeral Head, Open Approach (ICD-10-PCS; principal; 2018-05-01)
PROC: 01N50ZZ Release Median Nerve, Open Approach (ICD-10-PCS; principal; 2018-05-01)
DX: T84.84XA Pain due to internal orthopedic prosthetic devices, implants and grafts, initial encounter (principal); G56.02 Carpal tunnel syndrome, left upper limb; I10 Essential (primary) hypertension; I48.91 Unspecified atrial fibrillation; Z79.899 Other long term (current) drug therapy; Z88.8 Allergy status to other drugs, medicaments and biological substances
CPT/HCPCS: 76001; 80048; 93005; 93010; 96374; J1100; J2270; J2405; J2704; J3010

== ENCOUNTER 2018-10-14 08:30 | Outpatient (CLI) | payer BC ==
--- NOTE | 2018-10-14 09:33 | MMO ---
Bilateral MAMMO Bilat Screen [facility]. CLINICAL HISTORY: Patient is 63 years old and is seen for screening. The patient has no family history of breast cancer. The patient has no personal history of cancer. VIEWS: The views performed were: bilateral craniocaudal with tomosynthesis and bilateral mediolateral oblique with tomosynthesis. FILMS COMPARED: The present examination has been compared to prior imaging studies performed at [facility] on 10/15/2013, and at [facility] [place] on 12/04/1999, 06/06/2004 and 06/09/2004. MAMMOGRAM FINDINGS: There are scattered fibroglandular densities. There are stable benign appearing calcifications seen in both breasts. There are no suspicious masses, suspicious calcifications, or new areas of architectural distortion. IMPRESSION: THERE IS NO MAMMOGRAPHIC EVIDENCE OF MALIGNANCY. A ROUTINE FOLLOW-UP MAMMOGRAM IN 1 YEAR IS RECOMMENDED. THE RESULTS OF THIS EXAM WERE SENT TO THE PATIENT. ACR BI-RADS Category 2 - Benign finding MAMMOGRAPHY NOTE: 1. A negative mammogram report should not delay a biopsy if a dominant of clinically suspicious mass is present. 2. Approximately 10% to 15% of breast cancers are not detected by mammography. 3. Adenosis and dense breasts may obscure an underlying neoplasm.
== END 2018-10-14 08:31 | disposition home or self-care (01) ==
LOC: BICMAMMO 08:30
PROVIDERS: ATTEND Family Medicine
DX: Z12.31 Encounter for screening mammogram for malignant neoplasm of breast (principal)
CPT/HCPCS: 77063; 77067

== ENCOUNTER 2020-04-14 06:24 | Outpatient (CLI) | payer BC ==
[2020-04-14 22:36] LABS: SARS-CoV-2 MS2 Positive; SARS-CoV-2 N Gene Negative; SARS-CoV-2 S Gene Negative; SARS-CoV-2 by NAA Not Detected (NotDetected); SARS-CoV-2 orf1ab Negative
== END 2020-04-14 06:25 | disposition home or self-care (01) ==
LOC: LABBT 06:24
PROVIDERS: ATTEND Internal Medicine Gastroenterology
DX: K52.9 Noninfective gastroenteritis and colitis, unspecified (principal); M62.08 Separation of muscle (nontraumatic), other site; Z79.01 Long term (current) use of anticoagulants; Z20.828 Contact with and (suspected) exposure to other viral communicable diseases
CPT/HCPCS: 87635; U0003

== ENCOUNTER 2020-04-19 08:09 | Day surgery (SDC) | payer BC ==
[2020-04-18 10:48] VITALS: BMI 61.7
[2020-04-19] MEDS ORDERED: Lidocaine 1% PF 5 ML VIAL ONE (09:59)
[2020-04-19] MEDS ORDERED: PROPOFOL 200 MG/20 ML VIAL ONE (09:59)
[2020-04-19] MEDS ORDERED: HYDROcodone/Acetaminophen 5/325 mg Tablet ONE (11:31)
--- NOTE | 2020-04-20 10:18 | OP ---
DATE OF PROCEDURE: 04/19/2020 PROCEDURE PERFORMED: Colonoscopy. PREPROCEDURE DIAGNOSES: 1. Colorectal cancer screening. 2. Chronic diarrhea. 3. Previous colonoscopy in 2005. 4. Previous workup for chronic postprandial diarrhea in 2005 and 2010 with negative stool studies, negative celiac workup. POSTPROCEDURE DIAGNOSES: 1. Normal colonoscopy. 2. Random biopsies taken for microscopic colitis. 3. In the past, she has responded to antibiotics and lactose-free diet. It was thought that she had lactose intolerance and possible small bowel bacterial overgrowth. RECOMMENDATIONS: 1. Await histopathology. 2. Lactose-free diet. 3. If symptoms persist, we would consider a trial of empiric Colestid. 4. Follow up in the office in 2 to 3 weeks. 5. Repeat colonoscopy in 10 years for colorectal cancer screening. 6. The patient can restart her Eliquis, which she has held for 1 week. DESCRIPTION OF PROCEDURE: After patient was informed of the risks, benefits, possible complications of endoscopy including perforation, bleeding, reaction to medication, and aspiration, informed consent was obtained. The patient was brought to endoscopy suite, where she was sedated in gradual fashion. Once she was comfortable, rectal examination was performed, which was normal. The endoscope was advanced into the anal canal, through the colon to the cecum, which was identified by ileocecal valve and the appendiceal orifice. The terminal ileum was entered and found to be normal. The scope was then slowly removed. Good visualization of the mucosa. There was no mass, lesions, or AV malformations identified. There was no evidence of colitis. Retroflexed views in the rectum were normal. Random biopsies were taken from right and left colon for microscopic colitis. The scope was removed. The patient tolerated the procedure well. There were no complications. Job ID: [id number]
== END 2020-04-19 11:48 | disposition home or self-care (01) ==
LOC: SDC 08:09
PROVIDERS: ATTEND Internal Medicine Gastroenterology
PROC: 0DBG8ZX Excision of Left Large Intestine, Via Natural or Artificial Opening Endoscopic, Diagnostic (ICD-10-PCS; principal; 2020-04-19)
DX: K52.9 Noninfective gastroenteritis and colitis, unspecified (principal); F41.9 Anxiety disorder, unspecified; I48.91 Unspecified atrial fibrillation; F32.9 Major depressive disorder, single episode, unspecified; E11.9 Type 2 diabetes mellitus without complications; E07.9 Disorder of thyroid, unspecified; I10 Essential (primary) hypertension; E66.01 Morbid (severe) obesity due to excess calories; Z68.44 Body mass index [BMI] 60.0-69.9, adult; Z86.010 Personal history of colon polyps; Z79.01 Long term (current) use of anticoagulants; Z79.899 Other long term (current) drug therapy; Z88.6 Allergy status to analgesic agent; Z91.011 Allergy to milk products
CPT/HCPCS: 88305; J2704

== ENCOUNTER 2021-05-24 10:05 | Outpatient (CLI) | payer BC | END 2021-05-24 10:06 | disposition home or self-care (01) | LOC: BICRAD 10:05 | PROVIDERS: ATTEND Family Medicine | DX: R22.43 Localized swelling, mass and lump, lower limb, bilateral (principal); M79.89 Other specified soft tissue disorders ==

== ENCOUNTER 2022-10-04 19:00 | Outpatient (CLI) | payer BC | END 2022-10-04 19:01 | disposition home or self-care (01) | LOC: SLEEPLAB 19:00 | PROVIDERS: ATTEND Dermatology | DX: G47.33 Obstructive sleep apnea (adult) (pediatric) (principal); R53.83 Other fatigue; E66.9 Obesity, unspecified; Z68.43 Body mass index [BMI] 50.0-59.9, adult; R06.83 Snoring; I51.9 Heart disease, unspecified | CPT/HCPCS: 95811 ==

== ENCOUNTER 2023-02-15 23:01 | Observation (INO) | payer BC ==
[2023-02-16 01:02] VITALS: BMI 56.7
[2023-02-16] MEDS ORDERED: Ondansetron ODT 4 MG TAB PO PRN (01:18)
[2023-02-16] MEDS ORDERED: Ondansetron PF 4 MG/2 ML Vial IVP PRN (01:18)
[2023-02-16] MEDS ORDERED: Acetaminophen 650 MG Suppository PR PRN (01:18)
[2023-02-16] MEDS ORDERED: Acetaminophen 325 MG TAB PO PRN (01:18)
[2023-02-16] MEDS ORDERED: Glucagon 1 MG/ML KIT IM PRN (01:27)
[2023-02-16] MEDS ORDERED: HumaLOG 300 UNITS/3 ML VIAL SC PRN ×2 (01:27)
[2023-02-16] MEDS ORDERED: Dextrose 50% Abboject 50 ML SYRINGE SLOW IVP PRN (01:27)
[2023-02-16] MEDS ORDERED: Dextrose 5% in Water 1,000 ML IV PRN (01:27)
[2023-02-16 04:54] LABS: #Eosinphils 0.1 thou/uL (0.0-0.7); #Monocytes 1.1 thou/uL (0.11-0.59); #Neutrophils 11.8 thou/uL (1.40-6.50); %Basophils 0.1 % (0.0-1.0); %Eosinophils 0.8 % (0.0-10.0); %Lymphocytes 14.3 % (21.0-51.0); %Monocytes 7.1 % (0.0-10.0); %Neutrophils 76.7 % (42.0-75.0); Hematocrit 38.3 % (36.0-47.0); Mean Corpuscular HGB CONC 33.9 g/dL (32.0-36.0); Mean Corpuscular Hemoglobin 31.6 pg (27.0-31.0); Mean Corpuscular Volume 93.2 fl (78.0-98.0); Mean Platelet Volume 9.2 fL (7.4-10.4); Platelet Count 350 10x3/uL (130-400); RBC Distribution Width 13.9 % (11.5-14.5); Red Blood Cell (RBC) Count 4.11 mill/uL (4.20-5.40); White Blood Cell (WBC) Count 15.4 10x3/uL (4.8-10.8)
[2023-02-16 05:23] LABS: Anion Gap 13 mmol/L (10-20); BUN (Urea Nitrogen) 18 mg/dL (9.8-20.1); Calc. Creatinine Clearance 108 mL/min (70-130); Calcium 9.6 mg/dL (7.8-10.44); Carbon Dioxide 26 mmol/L (23-31); Chloride 97 mmol/L (98-107); Estimated GFR 54; Glucose 171 mg/dL (80-115); Magnesium 1.9 mg/dL (1.6-2.6); Sodium 133 mmol/L (136-145)
[2023-02-16 08:31] LABS: Bilirubin Negative (Negative); Blood, Urine Negative (Negative); CAUTI Indications for Culture Dysuria,urgency,freq; Clarity Turbid (Clear); Glucose, Urine (Dipstick) Normal (Negative); Ketone, Urine Negative (Negative); Leukocyte 75 Leu/uL (Negative); Nitrite Negative (Negative); Protein, Urine (Dipstick) Negative (Neg-Trace); RBC/HPF 0-3 HPF (0-3); Specific Gravity, Urine 1.023 (1.002-1.036); Squamous Epithelial 0-3 HPF (0-3); Urobilinogen Normal mg/dL (Less than 2); pH, Urine 6.5 (5.0-9.0)
[2023-02-16 08:33] LABS: Bacteria/HPF 1+ HPF (None Seen); Urine Culture Reflex No No
[2023-02-16] MEDS ORDERED: ALPRAZolam 0.5 MG TAB PO PRN (08:45)
[2023-02-16] MEDS ORDERED: HYDROcodone/Acetaminophen 5/325 mg Tablet PO PRN (08:45)
[2023-02-16] MEDS ORDERED: Magnesium 2 GM/50 ML(in water) 2 GM in Premix Bag 1 BAG IVPB SCH (09:00)
[2023-02-16] MEDS ORDERED: Levothyroxine Sodium 100 MCG TAB PO SCH (09:00)
[2023-02-16] MEDS ORDERED: Potassium Chloride 20 MEQ TAB PO SCH (09:00)
[2023-02-16] MEDS ORDERED: Icosapent Ethyl 1 GM CAPSULE PO SCH (09:00)
[2023-02-16] MEDS ORDERED: Venlafaxine HCl XR 75 MG CAP PO SCH (09:15)
[2023-02-16] MEDS: Apixaban 5 MG TAB PO SCH ×2 (09:36→20:11)
[2023-02-16] MEDS: Oxybutynin ER 5 MG TAB PO SCH (09:36)
[2023-02-16] MEDS: Atenolol 50 MG TAB PO SCH (09:37)
[2023-02-16] MEDS: Azithromycin 500 MG in Sodium Chloride 0.9% 250 ML 250 ML IVPB SCH (09:38)
[2023-02-16] MEDS: cefTRIAXone\\ROCEPHIN 1 GM in Sodium Chloride 0.9% 100 ML IVPB SCH (09:38)
[2023-02-16] MEDS: Sodium Chloride 0.9% 1,000 ML IV SCH (09:38)
[2023-02-16] MEDS: VASCEPA 1 GM PO SCH (20:11)
[2023-02-16] MEDS ORDERED: Atorvastatin Calcium 10 MG TAB PO SCH (21:00)
[2023-02-17 05:19] LABS: #Eosinphils 0.1 thou/uL (0.0-0.7); #Neutrophils 9.7 thou/uL (1.40-6.50); %Basophils 0.1 % (0.0-1.0); %Lymphocytes 14.1 % (21.0-51.0); %Monocytes 7.8 % (0.0-10.0); %Neutrophils 76.2 % (42.0-75.0); Hematocrit 36.8 % (36.0-47.0); Hemoglobin 12.4 g/dL (12.0-16.0); Mean Corpuscular HGB CONC 33.7 g/dL (32.0-36.0); Mean Corpuscular Hemoglobin 31.9 pg (27.0-31.0); Mean Corpuscular Volume 94.6 fl (78.0-98.0); Mean Platelet Volume 9.3 fL (7.4-10.4); Platelet Count 317 10x3/uL (130-400); Red Blood Cell (RBC) Count 3.89 mill/uL (4.20-5.40); White Blood Cell (WBC) Count 12.8 10x3/uL (4.8-10.8)
[2023-02-17 05:32] LABS: Hemoglobin A1c 7.6 % (4.0-6.0)
[2023-02-17] MEDS: Sodium Chloride 0.9% 1,000 ML IV SCH (05:37)
[2023-02-17 05:49] LABS: ALT (SGPT) 9 U/L (8-55); AST (SGOT) 12 U/L (5-34); Albumin 3.3 g/dL (3.4-4.8); Alkaline Phosphatase 74 U/L (40-110); Anion Gap 14 mmol/L (10-20); BUN (Urea Nitrogen) 12 mg/dL (9.8-20.1); Bilirubin, Total 0.7 mg/dL (0.2-1.2); Calc. Creatinine Clearance 125 mL/min (70-130); Calcium 8.8 mg/dL (7.8-10.44); Carbon Dioxide 26 mmol/L (23-31); Chloride 100 mmol/L (98-107); Estimated GFR 64; Globulin 3.5 g/dL (2.4-3.5); Glucose 162 mg/dL (80-115); Potassium 3.5 mmol/L (3.5-5.1); Protein, Total 6.8 g/dL (5.8-8.1); Sodium 136 mmol/L (136-145)
[2023-02-17] MEDS ORDERED: Levothyroxine Sodium 100 MCG TAB PO SCH (06:00)
[2023-02-17] MEDS ORDERED: Venlafaxine HCl XR 75 MG CAP PO SCH (09:00)
[2023-02-17] MEDS: Apixaban 5 MG TAB PO SCH (09:17)
[2023-02-17] MEDS: Atenolol 50 MG TAB PO SCH (09:19)
[2023-02-17] MEDS: cefTRIAXone\\ROCEPHIN 1 GM in Sodium Chloride 0.9% 100 ML IVPB SCH (09:19)
[2023-02-17] MEDS: Oxybutynin ER 5 MG TAB PO SCH (09:19)
[2023-02-17] MEDS: VASCEPA 1 GM PO SCH (09:20)
[2023-02-17] MEDS ORDERED: Potassium Chloride 20 MEQ TAB PO SCH (10:45)
[2023-02-17] MEDS: Azithromycin 500 MG in Sodium Chloride 0.9% 250 ML 250 ML IVPB SCH (10:54)
[2023-02-17 11:19] VITALS: BP 131/79; TEMP 97.9
== END 2023-02-17 15:42 | disposition home or self-care (01) ==
LOC: 2SW 02-16 00:37
PROVIDERS: ADMIT Student in an Organized Health Care Education/Training Program; ATTEND Internal Medicine
DX: R06.02 Shortness of breath (principal); I48.91 Unspecified atrial fibrillation; E11.9 Type 2 diabetes mellitus without complications; I10 Essential (primary) hypertension; D72.829 Elevated white blood cell count, unspecified; E87.6 Hypokalemia; E03.9 Hypothyroidism, unspecified; E66.01 Morbid (severe) obesity due to excess calories; Z79.01 Long term (current) use of anticoagulants; Z88.6 Allergy status to analgesic agent; Z91.011 Allergy to milk products; Z79.890 Hormone replacement therapy; Z79.899 Other long term (current) drug therapy; Z90.49 Acquired absence of other specified parts of digestive tract; Z90.89 Acquired absence of other organs; Z98.890 Other specified postprocedural states; Z68.43 Body mass index [BMI] 50.0-59.9, adult
CPT/HCPCS: 36415; 36416; 80048; 80053; 81001; 83036; 83735; 84145; 85025; 93306; 96365; 96368; 96376; G0378; J0456; J0696; J3475; J3490; J7050

== ENCOUNTER 2024-11-23 20:25 | Inpatient (IN) | payer BC, MEDICARE ==
[~2024-11-23 20:25] MED LIST: Iopamidol-370 76% 500 ML MDV (1 ML CHARGE) ONE
[2024-11-23] MEDS ORDERED: Dextrose 50% Abboject 50 ML SYRINGE ONE (20:34)
[2024-11-23] MEDS ORDERED: PROPOFOL 200 MG/20 ML VIAL ONE (21:12)
[2024-11-23] MEDS ORDERED: Rocuronium Bromide 10 MG/ML (10ML VIAL) ONE (21:12)
[2024-11-23] MEDS ORDERED: NOREPINEPHRINE 8 MG/250 ML-D5W 250 ML ONE (21:17)
[2024-11-23 21:24] LABS: Hematocrit 39.5 % (36.0-47.0); Hemoglobin 13.1 g/dL (12.0-16.0); Mean Corpuscular Hemoglobin 32.9 pg (27.0-31.0); Mean Corpuscular Volume 99.2 fL (78.0-98.0); Platelet Count 209 10x3/uL (130-400); Red Blood Cell (RBC) Count 3.98 mill/uL (4.20-5.40); White Blood Cell (WBC) Count 24.30 10x3/uL (4.8-10.8)
[2024-11-23 21:31] LABS: Actual Bicarbonate (HCO3a) 23.6 mEq/L (22-28); Analyzer IN Cardio ER; Base Excess (BEa) -4.2 mEq/L (-2.0 to +3.0); CO2 Tension 54.7 mmHg (35.0-45.0); Calcium, Ionized (arterial) 1.12 mmol/L (1.12-1.30); Hematocrit-ABG 38 % (36.0-47.0); Hemoglobin (Hb) 12.8 g/dL (12.0-16.0); O2 Tension (PaO2), arterial 350.0 mmHg (> 80.0); Potassium - ABG Lab 3.29 mmol/L (3.70-5.30); pH, Arterial 7.252 (7.35-7.45)
[2024-11-23] MEDS ORDERED: Hydrocortisone Sod Succ/PF 100 mg/2 ml Vial ONE (21:34)
[2024-11-23] MEDS ORDERED: Cefepime 2 GM VIAL ONE (21:34)
[2024-11-23 21:42] LABS: ALT (SGPT) 730 U/L (Less than 34); AST (SGOT) 237 U/L (11-34); Albumin 2.5 g/dL (3.1-4.5); Alkaline Phosphatase 853 U/L (40-110); Anion Gap 19 mmol/L (10-20); BUN (Urea Nitrogen) 28 mg/dL (9.8-20.1); Bilirubin, Total 1.1 mg/dL (0.3-1.2); Calc. Creatinine Clearance 0 mL/min (70-130); Calcium 8.6 mg/dL (7.8-10.44); Carbon Dioxide 21 mmol/L (23-31); Chloride 98 mmol/L (98-107); Globulin 2.7 g/dL (2.4-3.5); Glucose 157 mg/dL (80-115); Potassium 3.9 mmol/L (3.5-5.1); Sodium 134 mmol/L (136-145)
[2024-11-23 21:47] LABS: Platelet Adequacy Comment Platelets Normal; RBC Morphology Within Normal Limits; Smudge Cells 3.1 %
[2024-11-23] MEDS ORDERED: Acetaminophen 325 MG TAB PO PRN (22:07)
[2024-11-23] MEDS ORDERED: Ondansetron PF 4 MG/2 ML Vial IVP PRN (22:07)
[2024-11-23] MEDS ORDERED: Fentanyl BOLUS 100 ML IVPB PRN (22:15)
[2024-11-23] MEDS ORDERED: DISCONTINUE PREVIOUS NARCOTIC PAIN MEDICATIONS AND BENZODIAZEPINES FS SCH (22:15)
[2024-11-23] MEDS ORDERED: Ventilator Sedation Protocol 1 EACH FS SCH (22:15)
[2024-11-23 22:16] LABS: CAUTI Indications for Culture Alt mental st,lethar; Glucose, Urine (Dipstick) 300 mg/dL (Negative); Leukocyte 500 Leu/uL (Negative); Protein, Urine (Dipstick) Negative (Neg-Trace); RBC/HPF 21-50 HPF (0-3); Specific Gravity, Urine 1.012 (1.002-1.036); WBC/HPF Greater than 50 HPF (0-3)
[2024-11-23 22:19] LABS: Bacteria/HPF 1+ HPF (None Seen)
[2024-11-23 22:20] LABS: Urine Culture Reflex Yes Yes
[2024-11-23 22:24] LABS: Troponin I 0.359 ng/mL (< 0.028)
[2024-11-23] MEDS: Vasopressin In 0.9 % NaCl 100 ML IV SCH (23:23)
[2024-11-23] MEDS: VANCOMYCIN 2 GRAM/400 ML Premix BAG IVPB ONE (23:30)
[2024-11-24] MEDS: Amiodarone 150 MG, Admixture Fee 1 EACH in Dextrose 5% in Water 100 ML IVPB SCH (00:23)
[2024-11-24] MEDS: Hydrocortisone Sod Succ/PF 100 mg/2 ml Vial IVP SCH (00:47)
[2024-11-24 00:52] LABS: Puncture Site Right Radial artery
[2024-11-24 00:53] LABS: ALV-art Gradient 294.625 mmHg (0-20)
[2024-11-24] MEDS: NOREPINEPHRINE 8 MG/250 ML-D5W 250 ML IVPB PRN (01:06)
[2024-11-24] MEDS: Albumin 25% 25 GM (100 mL) BOT IVPB SCH ×2 (01:26→05:32)
[2024-11-24] MEDS: Phenylephrine 40 MG/NS 250 ML 250 ML IVPB SCH (01:35)
[2024-11-24 02:09] LABS: ALT (SGPT) 643 U/L (Less than 34); AST (SGOT) 194 U/L (11-34); Albumin 3.6 g/dL (3.1-4.5); Alkaline Phosphatase 761 U/L (40-110); Anion Gap 21 mmol/L (10-20); BUN (Urea Nitrogen) 30 mg/dL (9.8-20.1); Bilirubin, Total 1.2 mg/dL (0.3-1.2); Calc. Creatinine Clearance 60 mL/min (70-130); Calcium 8.1 mg/dL (7.8-10.44); Carbon Dioxide 16 mmol/L (23-31); Chloride 98 mmol/L (98-107); Globulin 2.3 g/dL (2.4-3.5); Glucose 249 mg/dL (80-115); Potassium 3.3 mmol/L (3.5-5.1); Sodium 132 mmol/L (136-145)
[2024-11-24] MEDS: Phenylephrine 40 MG/NS 250 ML 250 ML ONE (02:13)
[2024-11-24 02:34] LABS: Troponin I 0.492 ng/mL (< 0.028)
[2024-11-24] MEDS: Potassium Chloride 40 MEQ in Premix 1 BAG IVPB SCH (03:36)
[2024-11-24] MEDS: Sodium Bicarb 50 MEQ/50 ML Abboject 8.4% SYRINGE IVP SCH ×2 (03:42→06:05)
[2024-11-24 04:34] LABS: Hematocrit 32.1 % (36.0-47.0); Hemoglobin 10.7 g/dL (12.0-16.0); Mean Corpuscular Hemoglobin 32.7 pg (27.0-31.0); Mean Corpuscular Volume 98.2 fL (78.0-98.0); Platelet Count 178 10x3/uL (130-400); Red Blood Cell (RBC) Count 3.27 mill/uL (4.20-5.40); Vancomycin, Random 31.4 ug/mL (See Comment); White Blood Cell (WBC) Count 32.40 10x3/uL (4.8-10.8)
[2024-11-24 04:37] LABS: ALT (SGPT) 472 U/L (Less than 34); AST (SGOT) 136 U/L (11-34); Albumin 3.1 g/dL (3.1-4.5); Alkaline Phosphatase 570 U/L (40-110); Anion Gap 22 mmol/L (10-20); BUN (Urea Nitrogen) 31 mg/dL (9.8-20.1); Bilirubin, Total 1.4 mg/dL (0.3-1.2); Calc. Creatinine Clearance 60 mL/min (70-130); Calcium 8.1 mg/dL (7.8-10.44); Carbon Dioxide 20 mmol/L (23-31); Chloride 98 mmol/L (98-107); Globulin 2.0 g/dL (2.4-3.5); Glucose 289 mg/dL (80-115); Magnesium 1.9 mg/dL (1.6-2.6); Potassium 3.5 mmol/L (3.5-5.1); Sodium 136 mmol/L (136-145)
[2024-11-24 04:42] LABS: Critical Call Chem Troponin I RESULT DECREASING; Troponin I 0.457 ng/mL (< 0.028)
[2024-11-24 05:27] LABS: Platelet Adequacy Comment Platelets Normal; RBC Morphology Within Normal Limits
[2024-11-24 07:15] LABS: INR-International Normal Ratio 2.0; Prothrombin Time 23.1 sec (12.0-14.7)
[2024-11-24 07:26] LABS: Actual Bicarbonate (HCO3a) 20.7 mEq/L (22-28); Base Excess (BEa) -4.5 mEq/L (-2.0 to +3.0); CO2 Tension 38.5 mmHg (35.0-45.0); Calcium, Ionized (arterial) 1.10 mmol/L (1.12-1.30); Hematocrit-ABG 34 % (36.0-47.0); Hemoglobin (Hb) 11.4 g/dL (12.0-16.0); O2 Tension (PaO2), arterial 100.3 mmHg (> 80.0); Potassium - ABG Lab 3.73 mmol/L (3.70-5.30); pH, Arterial 7.348 (7.35-7.45)
[2024-11-24 07:29] LABS: Puncture Site Arterial Line
[2024-11-24 07:30] LABS: ALV-art Gradient 136.775 mmHg (0-20)
[2024-11-24] MEDS: Magnesium 2 GM/50 ML(in water) 2 GM in Premix 1 BAG IVPB SCH (08:54)
[2024-11-24] MEDS: Mupirocin 1 GM TUBE TP SCH (08:56)
[2024-11-24] MEDS: Apixaban 5 MG TAB PER TUBE SCH (08:56)
[2024-11-24] MEDS: Famotidine/PF 20 mg/2ml Vial SLOW IVP SCH (08:56)
[2024-11-24] MEDS ORDERED: Vancomycin (BATCH) 1.5 GM/300 ML BAG IVPB SCH (09:00)
[2024-11-24 15:06] LABS: Campy jejuni + coli by PCR Negative (Negative); STEC Shiga Toxin 1+2 Negative (Negative); Salmonella spp. by PCR Negative (Negative); Shigella spp + EIEC by PCR Negative (Negative)
[2024-11-24] MEDS ORDERED: Glucagon 1 MG/ML KIT IM PRN (17:11)
[2024-11-24 18:42] LABS: Glucose 318 mg/dL (80-115)
[2024-11-24] MEDS: Vancomycin 1.25 GM / NS 250 ML VIAL-2-BAG IVPB SCH (22:01)
[2024-11-25 01:03] LABS: Glucose 133 mg/dL (80-115)
[2024-11-25 05:27] LABS: Hematocrit 24.9 % (36.0-47.0); Hemoglobin 8.3 g/dL (12.0-16.0); Mean Corpuscular Hemoglobin 33.2 pg (27.0-31.0); Mean Corpuscular Volume 99.6 fL (78.0-98.0); Platelet Count 129 10x3/uL (130-400); Red Blood Cell (RBC) Count 2.50 mill/uL (4.20-5.40); White Blood Cell (WBC) Count 20.20 10x3/uL (4.8-10.8)
[2024-11-25 05:42] LABS: ALT (SGPT) 262 U/L (Less than 34); AST (SGOT) 59 U/L (11-34); Albumin 3.8 g/dL (3.1-4.5); Alkaline Phosphatase 361 U/L (40-110); Anion Gap 16 mmol/L (10-20); BUN (Urea Nitrogen) 25 mg/dL (9.8-20.1); Bilirubin, Total 2.3 mg/dL (0.3-1.2); Calc. Creatinine Clearance 111 mL/min (70-130); Calcium 9.3 mg/dL (7.8-10.44); Carbon Dioxide 24 mmol/L (23-31); Chloride 100 mmol/L (98-107); Globulin 1.9 g/dL (2.4-3.5); Glucose 196 mg/dL (80-115); Magnesium 2.4 mg/dL (1.6-2.6); Potassium 3.9 mmol/L (3.5-5.1); Sodium 136 mmol/L (136-145)
[2024-11-25 05:47] LABS: Vancomycin, Random 27.7 ug/mL (See Comment)
[2024-11-25 06:02] LABS: Anisocytosis SLIGHT = 6-15 cells HPF (0-5); Platelet Adequacy Comment Platelets Normal; Polychromasia SLIGHT = 2-3 cells HPF (0-2)
[2024-11-25 07:36] LABS: Actual Bicarbonate (HCO3a) 25.1 mEq/L (22-28); Base Excess (BEa) -1.5 mEq/L (-2.0 to +3.0); CO2 Tension 51.8 mmHg (35.0-45.0); Calcium, Ionized (arterial) 1.23 mmol/L (1.12-1.30); Hematocrit-ABG 28 % (36.0-47.0); Hemoglobin (Hb) 9.6 g/dL (12.0-16.0); O2 Tension (PaO2), arterial 77.9 mmHg (> 80.0); Potassium - ABG Lab 4.12 mmol/L (3.70-5.30); pH, Arterial 7.304 (7.35-7.45)
[2024-11-25 07:38] LABS: ALV-art Gradient 142.550 mmHg (0-20); Puncture Site Arterial Line
[2024-11-25 07:48] LABS: Glucose 203 mg/dL (80-115)
[2024-11-25] MEDS: Famotidine/PF 20 mg/2ml Vial SLOW IVP SCH (09:29)
[2024-11-25] MEDS: Vancomycin HCl 750 MG in Sodium Chloride 0.9% 250 ML 250 ML IVPB SCH (09:58)
[2024-11-25 16:48] LABS: Hematocrit 23.2 % (36.0-47.0); Hemoglobin 7.7 g/dL (12.0-16.0)
[2024-11-25] MEDS: Pantoprazole 40 MG DR.TAB PO SCH (19:00)
[2024-11-25 23:28] LABS: Hematocrit 23.9 % (36.0-47.0); Hemoglobin 7.9 g/dL (12.0-16.0); Mean Corpuscular Hemoglobin 33.1 pg (27.0-31.0); Mean Corpuscular Volume 100.0 fL (78.0-98.0); Platelet Count 108 10x3/uL (130-400); Red Blood Cell (RBC) Count 2.39 mill/uL (4.20-5.40); White Blood Cell (WBC) Count 15.29 10x3/uL (4.8-10.8)
[2024-11-26] MEDS: Propofol BOLUS 1,000 MG/100 ML VIAL IV PRN (06:30)
[2024-11-26 06:36] LABS: Hematocrit 25.7 % (36.0-47.0); Hemoglobin 8.3 g/dL (12.0-16.0); Mean Corpuscular Hemoglobin 32.7 pg (27.0-31.0); Mean Corpuscular Volume 101.2 fL (78.0-98.0); Platelet Count 112 10x3/uL (130-400); Red Blood Cell (RBC) Count 2.54 mill/uL (4.20-5.40); White Blood Cell (WBC) Count 15.15 10x3/uL (4.8-10.8)
[2024-11-26 06:37] LABS: Vancomycin, Random 27.5 ug/mL (See Comment)
[2024-11-26 06:41] LABS: ALT (SGPT) 203 U/L (Less than 34); AST (SGOT) 45 U/L (11-34); Albumin 3.2 g/dL (3.1-4.5); Alkaline Phosphatase 312 U/L (40-110); Anion Gap 12 mmol/L (10-20); BUN (Urea Nitrogen) 21 mg/dL (9.8-20.1); Bilirubin, Total 2.0 mg/dL (0.3-1.2); Calc. Creatinine Clearance 132 mL/min (70-130); Calcium 9.2 mg/dL (7.8-10.44); Carbon Dioxide 25 mmol/L (23-31); Chloride 105 mmol/L (98-107); Globulin 2.2 g/dL (2.4-3.5); Glucose 106 mg/dL (80-115); Potassium 3.7 mmol/L (3.5-5.1); Sodium 138 mmol/L (136-145)
[2024-11-26 07:05] LABS: Anisocytosis SLIGHT = 6-15 cells HPF (0-5); Macrocytosis SLIGHT = 6-15 cells HPF (0-5); Platelet Adequacy Comment Platelets Decreased; Polychromasia SLIGHT = 2-3 cells HPF (0-2); Smudge Cells 10.0 %; Stomatocytes SLIGHT = 2-5 cells HPF (0-1)
[2024-11-26] MEDS: Pantoprazole 40 MG VIAL IVP SCH (07:59)
[2024-11-26 09:13] LABS: Actual Bicarbonate (HCO3a) 23.5 mEq/L (22-28); Base Excess (BEa) -2.4 mEq/L (-2.0 to +3.0); CO2 Tension 45.8 mmHg (35.0-45.0); Calcium, Ionized (arterial) 1.25 mmol/L (1.12-1.30); Hematocrit-ABG 27 % (36.0-47.0); Hemoglobin (Hb) 9.2 g/dL (12.0-16.0); Potassium - ABG Lab 3.72 mmol/L (3.70-5.30); pH, Arterial 7.328 (7.35-7.45)
[2024-11-26 09:14] LABS: O2 Tension (PaO2), arterial 52.9 mmHg (> 80.0); Puncture Site Arterial Line
[2024-11-26 09:15] LABS: ALV-art Gradient 175.050 mmHg (0-20)
[2024-11-26] MEDS: Furosemide 40 MG (4 mL) VIAL SLOW IVP SCH (11:01)
[2024-11-26 14:09] LABS: Actual Bicarbonate (HCO3a) 24.0 mEq/L (22-28); Base Excess (BEa) -0.9 mEq/L (-2.0 to +3.0); CO2 Tension 41.0 mmHg (35.0-45.0); Calcium, Ionized (arterial) 1.26 mmol/L (1.12-1.30); Hematocrit-ABG 27 % (36.0-47.0); Hemoglobin (Hb) 9.1 g/dL (12.0-16.0); O2 Tension (PaO2), arterial 63.1 mmHg (> 80.0); Potassium - ABG Lab 3.13 mmol/L (3.70-5.30); pH, Arterial 7.386 (7.35-7.45)
[2024-11-26 14:13] LABS: ALV-art Gradient 242.150 mmHg (0-20); Puncture Site Arterial Line
[2024-11-26] MEDS: Albumin 25% 25 GM (100 mL) BOT IVPB SCH (20:04)
[2024-11-27 04:45] LABS: ALT (SGPT) 156 U/L (Less than 34); AST (SGOT) 42 U/L (11-34); Albumin 3.3 g/dL (3.1-4.5); Alkaline Phosphatase 282 U/L (40-110); Anion Gap 16 mmol/L (10-20); BUN (Urea Nitrogen) 22 mg/dL (9.8-20.1); Bilirubin, Total 3.5 mg/dL (0.3-1.2); Calc. Creatinine Clearance 112 mL/min (70-130); Calcium 9.3 mg/dL (7.8-10.44); Carbon Dioxide 22 mmol/L (23-31); Chloride 108 mmol/L (98-107); Globulin 2.4 g/dL (2.4-3.5); Glucose 81 mg/dL (80-115); Potassium 3.5 mmol/L (3.5-5.1); Sodium 142 mmol/L (136-145)
[2024-11-27 04:57] LABS: Hematocrit 25.5 % (36.0-47.0); Hemoglobin 8.2 g/dL (12.0-16.0); Mean Corpuscular Hemoglobin 32.4 pg (27.0-31.0); Mean Corpuscular Volume 100.8 fL (78.0-98.0); Platelet Count 112 10x3/uL (130-400); Red Blood Cell (RBC) Count 2.53 mill/uL (4.20-5.40); White Blood Cell (WBC) Count 15.71 10x3/uL (4.8-10.8)
[2024-11-27 06:26] LABS: Anisocytosis SLIGHT = 6-15 cells HPF (0-5); Basophilic Stippling SLIGHT = 1-2 cells HPF (None Seen); Macrocytosis SLIGHT = 6-15 cells HPF (0-5); Platelet Adequacy Comment Platelets Decreased; Polychromasia SLIGHT = 2-3 cells HPF (0-2); Smudge Cells 1.0 %
[2024-11-27 07:47] LABS: Actual Bicarbonate (HCO3a) 23.3 mEq/L (22-28); Base Excess (BEa) -1.4 mEq/L (-2.0 to +3.0); CO2 Tension 38.9 mmHg (35.0-45.0); Calcium, Ionized (arterial) 1.27 mmol/L (1.12-1.30); Hematocrit-ABG 25 % (36.0-47.0); Hemoglobin (Hb) 8.6 g/dL (12.0-16.0); O2 Tension (PaO2), arterial 128.4 mmHg (> 80.0); Potassium - ABG Lab 3.37 mmol/L (3.70-5.30); pH, Arterial 7.395 (7.35-7.45)
[2024-11-27 07:48] LABS: ALV-art Gradient 179.475 mmHg (0-20); Puncture Site Arterial Line
[2024-11-27] MEDS: Potassium Chloride 20 MEQ in Premix 1 BAG IVPB SCH (09:26)
[2024-11-27] MEDS: Dextrose 50% Abboject 50 ML SYRINGE SLOW IVP PRN (09:57)
[2024-11-27] MEDS: Furosemide 40 MG (4 mL) VIAL SLOW IVP SCH (12:41)
[2024-11-27] MEDS: Heparin 5,000 UNITS/ML VIAL SC SCH (16:15)
[2024-11-28 04:28] LABS: Hematocrit 22.6 % (36.0-47.0); Hemoglobin 7.3 g/dL (12.0-16.0); Mean Corpuscular Hemoglobin 32.6 pg (27.0-31.0); Mean Corpuscular Volume 100.9 fL (78.0-98.0); Platelet Count 93 10x3/uL (130-400); Red Blood Cell (RBC) Count 2.24 mill/uL (4.20-5.40); White Blood Cell (WBC) Count 10.33 10x3/uL (4.8-10.8)
[2024-11-28 05:15] LABS: Macrocytosis SLIGHT = 6-15 cells HPF (0-5); Platelet Adequacy Comment Platelets Decreased; Polychromasia SLIGHT = 2-3 cells HPF (0-2); Smudge Cells 10.8 %
[2024-11-28 05:35] LABS: ALT (SGPT) 112 U/L (Less than 34); AST (SGOT) 32 U/L (11-34); Albumin 2.5 g/dL (3.1-4.5); Alkaline Phosphatase 240 U/L (40-110); Anion Gap 12 mmol/L (10-20); BUN (Urea Nitrogen) 24 mg/dL (9.8-20.1); Bilirubin, Total 2.8 mg/dL (0.3-1.2); Calc. Creatinine Clearance 116 mL/min (70-130); Calcium 8.8 mg/dL (7.8-10.44); Carbon Dioxide 23 mmol/L (23-31); Chloride 111 mmol/L (98-107); Globulin 2.6 g/dL (2.4-3.5); Glucose 89 mg/dL (80-115); Potassium 3.3 mmol/L (3.5-5.1); Sodium 143 mmol/L (136-145)
[2024-11-28] MEDS: Potassium Chloride 20 MEQ in Premix 1 BAG IVPB SCH (08:08)
[2024-11-28] MEDS: Furosemide 40 MG (4 mL) VIAL SLOW IVP SCH (10:16)
[2024-11-28] MEDS: Atenolol 25 MG TAB PO SCH (10:16)
[2024-11-28] MEDS: Water For Inject, Bacteriostat 30 ML ONE (11:27)
[2024-11-28 12:33] LABS: Hematocrit 26.2 % (36.0-47.0); Hemoglobin 8.5 g/dL (12.0-16.0); Mean Corpuscular Hemoglobin 32.8 pg (27.0-31.0); Mean Corpuscular Volume 101.2 fL (78.0-98.0); Platelet Count 128 10x3/uL (130-400); Red Blood Cell (RBC) Count 2.59 mill/uL (4.20-5.40); White Blood Cell (WBC) Count 19.93 10x3/uL (4.8-10.8)
[2024-11-28 12:46] LABS: Anion Gap 16 mmol/L (10-20); BUN (Urea Nitrogen) 29 mg/dL (9.8-20.1); Calc. Creatinine Clearance 119 mL/min (70-130); Calcium 9.3 mg/dL (7.8-10.44); Carbon Dioxide 22 mmol/L (23-31); Chloride 110 mmol/L (98-107); Glucose 88 mg/dL (80-115); Magnesium 1.9 mg/dL (1.6-2.6); Potassium 3.7 mmol/L (3.5-5.1); Sodium 144 mmol/L (136-145)
[2024-11-28 12:58] LABS: Anisocytosis SLIGHT = 6-15 cells HPF (0-5); Macrocytosis SLIGHT = 6-15 cells HPF (0-5); Nucleated RBC (Manual Ct) 2 % (0); Platelet Adequacy Comment Platelets Decreased; Poikilocytosis SLIGHT = 6-15 cells HPF (0-5); Polychromasia SLIGHT = 2-3 cells HPF (0-2)
[2024-11-28] MEDS: Magnesium 2 GM/50 ML(in water) 2 GM in Premix 1 BAG IVPB SCH (13:22)
[2024-11-28 13:31] LABS: Actual Bicarbonate (HCO3a) 18.3 mEq/L (22-28); Base Excess (BEa) -6.8 mEq/L (-2.0 to +3.0); CO2 Tension 35.0 mmHg (35.0-45.0); Calcium, Ionized (arterial) 1.23 mmol/L (1.12-1.30); Hematocrit-ABG 27 % (36.0-47.0); Hemoglobin (Hb) 9.1 g/dL (12.0-16.0); O2 Tension (PaO2), arterial 63.8 mmHg (> 80.0); Potassium - ABG Lab 3.67 mmol/L (3.70-5.30); pH, Arterial 7.336 (7.35-7.45)
[2024-11-28 13:34] LABS: ALV-art Gradient 213.300 mmHg (0-20); Puncture Site Arterial Line
[2024-11-28] MEDS: Albumin 25% 25 GM (100 mL) BOT IVPB SCH ×2 (15:34→17:10)
[2024-11-28] MEDS: Vancomycin (BATCH) 2.5 GM in Premix 1 BAG IVPB SCH (15:34)
[2024-11-28] MEDS ORDERED: Phenylephrine 40 MG/NS 250 ML 250 ML IVPB SCH (19:30)
[2024-11-28] MEDS: Nystatin Powder 15 GM BOT TOP SCH (21:32)
[2024-11-28] MEDS: Bumetanide 1 MG/4 ML VIAL IVP SCH (21:55)
[2024-11-28 22:14] LABS: Hematocrit 23.6 % (36.0-47.0); Hemoglobin 7.6 g/dL (12.0-16.0); Mean Corpuscular Hemoglobin 32.5 pg (27.0-31.0); Mean Corpuscular Volume 100.9 fL (78.0-98.0); Platelet Count 118 10x3/uL (130-400); Red Blood Cell (RBC) Count 2.34 mill/uL (4.20-5.40); White Blood Cell (WBC) Count 23.09 10x3/uL (4.8-10.8)
[2024-11-28 22:39] LABS: ALT (SGPT) 103 U/L (Less than 34); AST (SGOT) 51 U/L (11-34); Albumin 3.3 g/dL (3.1-4.5); Alkaline Phosphatase 317 U/L (40-110); Anion Gap 18 mmol/L (10-20); BUN (Urea Nitrogen) 30 mg/dL (9.8-20.1); Bilirubin, Total 4.5 mg/dL (0.3-1.2); Calc. Creatinine Clearance 97 mL/min (70-130); Calcium 9.2 mg/dL (7.8-10.44); Carbon Dioxide 17 mmol/L (23-31); Chloride 111 mmol/L (98-107); Globulin 2.7 g/dL (2.4-3.5); Glucose 211 mg/dL (80-115); Potassium 4.2 mmol/L (3.5-5.1); Sodium 142 mmol/L (136-145)
[2024-11-28 22:40] LABS: Anisocytosis SLIGHT = 6-15 cells HPF (0-5); Macrocytosis SLIGHT = 6-15 cells HPF (0-5); Platelet Adequacy Comment Platelets Decreased; Poikilocytosis SLIGHT = 6-15 cells HPF (0-5); Polychromasia SLIGHT = 2-3 cells HPF (0-2)
[2024-11-29 04:13] LABS: Vancomycin, Random 38.4 ug/mL (See Comment)
[2024-11-29 04:18] LABS: ALT (SGPT) 92 U/L (Less than 34); AST (SGOT) 36 U/L (11-34); Albumin 3.5 g/dL (3.1-4.5); Alkaline Phosphatase 261 U/L (40-110); Anion Gap 16 mmol/L (10-20); BUN (Urea Nitrogen) 34 mg/dL (9.8-20.1); Bilirubin, Total 4.1 mg/dL (0.3-1.2); Calc. Creatinine Clearance 94 mL/min (70-130); Calcium 9.2 mg/dL (7.8-10.44); Carbon Dioxide 20 mmol/L (23-31); Chloride 111 mmol/L (98-107); Globulin 2.2 g/dL (2.4-3.5); Glucose 175 mg/dL (80-115); Potassium 3.5 mmol/L (3.5-5.1); Sodium 143 mmol/L (136-145)
[2024-11-29 04:19] LABS: Hematocrit 21.2 % (36.0-47.0); Hemoglobin 7.0 g/dL (12.0-16.0); Mean Corpuscular Hemoglobin 32.7 pg (27.0-31.0); Mean Corpuscular Volume 99.1 fL (78.0-98.0); Platelet Count 88 10x3/uL (130-400); Red Blood Cell (RBC) Count 2.14 mill/uL (4.20-5.40); White Blood Cell (WBC) Count 10.70 10x3/uL (4.8-10.8)
[2024-11-29 05:39] LABS: Anisocytosis SLIGHT = 6-15 cells HPF (0-5); Macrocytosis SLIGHT = 6-15 cells HPF (0-5); Nucleated RBC (Manual Ct) 2 % (0); Platelet Adequacy Comment Platelets Decreased; Polychromasia SLIGHT = 2-3 cells HPF (0-2); Smudge Cells 5.9 %
[2024-11-29] MEDS: Bumetanide 1 MG/4 ML VIAL IVP SCH ×2 (08:05→18:02)
[2024-11-29] MEDS: Potassium Chloride 20 MEQ in Premix 1 BAG IVPB SCH (08:56)
[2024-11-29] MEDS: Bisacodyl 10 MG SUPP PR PRN (11:05)
[2024-11-29] MEDS: Albumin 25% 25 GM (100 mL) BOT IVPB SCH ×2 (16:16→22:06)
[2024-11-29 16:25] LABS: Hematocrit 23.0 % (36.0-47.0); Hemoglobin 7.8 g/dL (12.0-16.0); Mean Corpuscular Hemoglobin 32.6 pg (27.0-31.0); Mean Corpuscular Volume 96.2 fL (78.0-98.0); Platelet Count 82 10x3/uL (130-400); Red Blood Cell (RBC) Count 2.39 mill/uL (4.20-5.40); White Blood Cell (WBC) Count 12.09 10x3/uL (4.8-10.8)
[2024-11-29 17:06] LABS: Anisocytosis SLIGHT = 6-15 cells HPF (0-5); Nucleated RBC (Manual Ct) 1 % (0); Platelet Adequacy Comment Platelets Decreased; Poikilocytosis SLIGHT = 6-15 cells HPF (0-5); Polychromasia SLIGHT = 2-3 cells HPF (0-2)
[2024-11-29] MEDS ORDERED: Vancomycin 1 GM in Premix 1 BAG IVPB SCH (21:00)
[2024-11-29] MEDS ORDERED: Vancomycin HCl 1.25 GM in Sodium Chloride 0.9% 250 ML 250 ML IVPB SCH (21:00)
[2024-11-30] MEDS: Vancomycin 1 GM in Premix 1 BAG IVPB SCH (00:15)
[2024-11-30 04:16] LABS: #Basophils 0.03 10x3/uL (0.0-0.2); #Eosinophils Less than 0.03 10x3/uL (0.0-0.7); #Monocytes 0.32 10x3/uL (0.11-0.59); #Neutrophils 9.36 10x3/uL (1.40-6.50); %Basophils 0.3 % (0.0-1.0); %Eosinophils 0.0 % (0.0-10.0); %Lymphocytes 5.9 % (21.0-51.0); %Monocytes 2.9 % (0.0-10.0); %Neutrophils 86.0 % (42.0-75.0); Hematocrit 22.9 % (36.0-47.0); Hemoglobin 7.6 g/dL (12.0-16.0); Mean Corpuscular Hemoglobin 32.1 pg (27.0-31.0); Mean Corpuscular Volume 96.6 fL (78.0-98.0); Platelet Count 79 10x3/uL (130-400); Red Blood Cell (RBC) Count 2.37 mill/uL (4.20-5.40); White Blood Cell (WBC) Count 10.88 10x3/uL (4.8-10.8)
[2024-11-30 04:25] LABS: ALT (SGPT) 58 U/L (Less than 34); AST (SGOT) 29 U/L (11-34); Albumin 3.7 g/dL (3.1-4.5); Alkaline Phosphatase 195 U/L (40-110); Anion Gap 15 mmol/L (10-20); BUN (Urea Nitrogen) 45 mg/dL (9.8-20.1); Bilirubin, Total 4.5 mg/dL (0.3-1.2); Calc. Creatinine Clearance 83 mL/min (70-130); Calcium 9.3 mg/dL (7.8-10.44); Carbon Dioxide 20 mmol/L (23-31); Chloride 112 mmol/L (98-107); Globulin 2.2 g/dL (2.4-3.5); Glucose 149 mg/dL (80-115); Potassium 3.1 mmol/L (3.5-5.1); Sodium 144 mmol/L (136-145)
[2024-11-30 09:46] LABS: Magnesium 2.2 mg/dL (1.6-2.6)
[2024-11-30] MEDS: Bumetanide 1 MG/4 ML VIAL IVP SCH (22:18)
[2024-11-30] MEDS ORDERED: Ventilator Sedation Protocol 1 EACH FS SCH (23:11)
[2024-11-30] MEDS ORDERED: Fentanyl BOLUS 100 ML IVPB PRN (23:30)
[2024-11-30] MEDS ORDERED: Propofol BOLUS 1,000 MG/100 ML VIAL IV PRN (23:30)
[2024-11-30] MEDS ORDERED: DISCONTINUE PREVIOUS NARCOTIC PAIN MEDICATIONS AND BENZODIAZEPINES FS SCH (23:30)
[2024-12-01 05:33] LABS: Hematocrit 26.3 % (36.0-47.0); Hemoglobin 8.7 g/dL (12.0-16.0); Mean Corpuscular Hemoglobin 32.7 pg (27.0-31.0); Mean Corpuscular Volume 98.9 fL (78.0-98.0); Platelet Count 120 10x3/uL (130-400); Red Blood Cell (RBC) Count 2.66 mill/uL (4.20-5.40); White Blood Cell (WBC) Count 31.27 10x3/uL (4.8-10.8)
[2024-12-01 05:35] LABS: Vancomycin, Random 44.8 ug/mL (See Comment)
[2024-12-01 05:37] LABS: ALT (SGPT) 75 U/L (Less than 34); AST (SGOT) 52 U/L (11-34); Albumin 3.6 g/dL (3.1-4.5); Alkaline Phosphatase 281 U/L (40-110); Anion Gap 16 mmol/L (10-20); BUN (Urea Nitrogen) 59 mg/dL (9.8-20.1); Bilirubin, Total 4.1 mg/dL (0.3-1.2); Calc. Creatinine Clearance 64 mL/min (70-130); Calcium 9.2 mg/dL (7.8-10.44); Carbon Dioxide 18 mmol/L (23-31); Chloride 114 mmol/L (98-107); Globulin 2.2 g/dL (2.4-3.5); Glucose 164 mg/dL (80-115); Magnesium 2.0 mg/dL (1.6-2.6); Potassium 3.0 mmol/L (3.5-5.1); Sodium 145 mmol/L (136-145)
[2024-12-01 06:27] LABS: INR-International Normal Ratio 1.5; Prothrombin Time 17.9 sec (12.0-14.7)
[2024-12-01 06:28] LABS: PTT 33.4 sec (22.9-36.1)
[2024-12-01 06:44] LABS: Anisocytosis SLIGHT = 6-15 cells HPF (0-5); Macrocytosis SLIGHT = 6-15 cells HPF (0-5); Nucleated RBC (Manual Ct) 2 % (0); Platelet Adequacy Comment Platelets Decreased; Polychromasia SLIGHT = 2-3 cells HPF (0-2); Smudge Cells 2.8 %
[2024-12-01 08:15] LABS: Actual Bicarbonate (HCO3a) 18.4 mEq/L (22-28); Base Excess (BEa) -8.2 mEq/L (-2.0 to +3.0); CO2 Tension 42.1 mmHg (35.0-45.0); Calcium, Ionized (arterial) 1.29 mmol/L (1.12-1.30); Hematocrit-ABG 29 % (36.0-47.0); Hemoglobin (Hb) 9.8 g/dL (12.0-16.0); O2 Tension (PaO2), arterial 79.9 mmHg (> 80.0); Potassium - ABG Lab 3.23 mmol/L (3.70-5.30); pH, Arterial 7.258 (7.35-7.45)
[2024-12-01 08:18] LABS: Puncture Site ARTLINE
[2024-12-01 08:19] LABS: ALV-art Gradient 295.275 mmHg (0-20)
[2024-12-01] MEDS: Midazolam In 0.9 % NaCl/PF 100 ML IV SCH (08:51)
[2024-12-01] MEDS: Potassium Chloride 20 MEQ in Premix 1 BAG IVPB SCH (09:37)
[2024-12-01] MEDS: Magnesium 2 GM/50 ML(in water) 2 GM in Premix 1 BAG IVPB SCH (11:55)
[2024-12-01] MEDS ORDERED: Electrolyte Replacement Protocol 1 EACH FS SCH (19:47)
[2024-12-01] MEDS: Albumin 25% 25 GM (100 mL) BOT IVPB SCH (20:24)
[2024-12-01 20:51] LABS: ALT (SGPT) 60 U/L (Less than 34); AST (SGOT) 37 U/L (11-34); Albumin 3.0 g/dL (3.1-4.5); Alkaline Phosphatase 228 U/L (40-110); Anion Gap 16 mmol/L (10-20); BUN (Urea Nitrogen) 70 mg/dL (9.8-20.1); Bilirubin, Total 3.5 mg/dL (0.3-1.2); Calc. Creatinine Clearance 58 mL/min (70-130); Calcium 9.2 mg/dL (7.8-10.44); Carbon Dioxide 17 mmol/L (23-31); Chloride 115 mmol/L (98-107); Globulin 2.6 g/dL (2.4-3.5); Glucose 111 mg/dL (80-115); Potassium 3.7 mmol/L (3.5-5.1); Sodium 144 mmol/L (136-145)
[2024-12-01] MEDS: Vancomycin 1 GM in Premix 1 BAG IVPB SCH (23:33)
[2024-12-02] MEDS: Digoxin 0.5 MG/2 ML AMP SLOW IVP SCH (02:57)
[2024-12-02 07:17] LABS: ALT (SGPT) 57 U/L (Less than 34); AST (SGOT) 44 U/L (11-34); Albumin 3.2 g/dL (3.1-4.5); Alkaline Phosphatase 226 U/L (40-110); Anion Gap 14 mmol/L (10-20); BUN (Urea Nitrogen) 70 mg/dL (9.8-20.1); Bilirubin, Total 3.6 mg/dL (0.3-1.2); Calc. Creatinine Clearance 53 mL/min (70-130); Calcium 9.1 mg/dL (7.8-10.44); Carbon Dioxide 18 mmol/L (23-31); Chloride 112 mmol/L (98-107); Globulin 2.4 g/dL (2.4-3.5); Glucose 152 mg/dL (80-115); Potassium 3.6 mmol/L (3.5-5.1); Sodium 140 mmol/L (136-145)
[2024-12-02 07:32] LABS: Actual Bicarbonate (HCO3a) 16.8 mEq/L (22-28); Base Excess (BEa) -10.8 mEq/L (-2.0 to +3.0); CO2 Tension 45.2 mmHg (35.0-45.0); Calcium, Ionized (arterial) 1.35 mmol/L (1.12-1.30); Hematocrit-ABG 26 % (36.0-47.0); Hemoglobin (Hb) 8.8 g/dL (12.0-16.0); O2 Tension (PaO2), arterial 73.1 mmHg (> 80.0); Potassium - ABG Lab 3.87 mmol/L (3.70-5.30)
[2024-12-02 07:36] LABS: Puncture Site ARTLINE; pH, Arterial 7.188 (7.35-7.45)
[2024-12-02 07:38] LABS: ALV-art Gradient 226.900 mmHg (0-20)
[2024-12-02 07:49] LABS: Hematocrit 24.9 % (36.0-47.0); Hemoglobin 7.9 g/dL (12.0-16.0); Mean Corpuscular Hemoglobin 32.0 pg (27.0-31.0); Mean Corpuscular Volume 100.8 fL (78.0-98.0); Platelet Count 71 10x3/uL (130-400); Red Blood Cell (RBC) Count 2.47 mill/uL (4.20-5.40); White Blood Cell (WBC) Count 32.86 10x3/uL (4.8-10.8)
[2024-12-02] MEDS: Vancomycin HCl 125 MG/5 ML (BATCHED) UDCUP PER TUBE SCH (08:00)
[2024-12-02 08:04] LABS: CRP, High Sensitivity at Bryan 23.08 mg/dL (< or = 0.5); Magnesium 2.5 mg/dL (1.6-2.6)
[2024-12-02 09:15] LABS: Anisocytosis MODERATE=16-30 cells HPF (0-5); Macrocytosis SLIGHT = 6-15 cells HPF (0-5); Platelet Adequacy Comment Platelets Decreased; Polychromasia SLIGHT = 2-3 cells HPF (0-2); RBC Morphology Within Normal Limits; Smudge Cells 6.7 %
[2024-12-03 02:52] VITALS: BP 110/39
[2024-12-03 03:51] LABS: #Basophils 0.10 10x3/uL (0.0-0.2); #Eosinophils Less than 0.03 10x3/uL (0.0-0.7); #Monocytes 0.33 10x3/uL (0.11-0.59); #Neutrophils 24.53 10x3/uL (1.40-6.50); %Basophils 0.3 % (0.0-1.0); %Eosinophils 0.0 % (0.0-10.0); %Lymphocytes 2.6 % (21.0-51.0); %Monocytes 1.1 % (0.0-10.0); %Neutrophils 85.1 % (42.0-75.0); Hematocrit 23.7 % (36.0-47.0); Hemoglobin 7.8 g/dL (12.0-16.0); Mean Corpuscular Hemoglobin 32.5 pg (27.0-31.0); Mean Corpuscular Volume 98.8 fL (78.0-98.0); Platelet Count 62 10x3/uL (130-400); Red Blood Cell (RBC) Count 2.40 mill/uL (4.20-5.40); White Blood Cell (WBC) Count 28.87 10x3/uL (4.8-10.8)
[2024-12-03 03:53] LABS: ALT (SGPT) 85 U/L (Less than 34); AST (SGOT) 79 U/L (11-34); Albumin 2.6 g/dL (3.1-4.5); Alkaline Phosphatase 278 U/L (40-110); Anion Gap 16 mmol/L (10-20); BUN (Urea Nitrogen) 93 mg/dL (9.8-20.1); Bilirubin, Total 2.3 mg/dL (0.3-1.2); Calc. Creatinine Clearance 45 mL/min (70-130); Calcium 9.0 mg/dL (7.8-10.44); Carbon Dioxide 15 mmol/L (23-31); Chloride 106 mmol/L (98-107); Globulin 2.8 g/dL (2.4-3.5); Glucose 139 mg/dL (80-115); Potassium 3.7 mmol/L (3.5-5.1); Sodium 133 mmol/L (136-145)
[2024-12-03 06:42] LABS: Actual Bicarbonate (HCO3a) 16.1 mEq/L (22-28); Base Excess (BEa) -11.1 mEq/L (-2.0 to +3.0); CO2 Tension 41.7 mmHg (35.0-45.0); Calcium, Ionized (arterial) 1.32 mmol/L (1.12-1.30); Hematocrit-ABG 25 % (36.0-47.0); Hemoglobin (Hb) 8.5 g/dL (12.0-16.0); O2 Tension (PaO2), arterial 67.3 mmHg (> 80.0); Potassium - ABG Lab 3.90 mmol/L (3.70-5.30)
[2024-12-03 06:51] LABS: ALV-art Gradient 237.075 mmHg (0-20); Puncture Site Arterial Line
[2024-12-03 06:59] LABS: Anisocytosis SLIGHT = 6-15 cells HPF (0-5); Burr Cells SLIGHT = 2-5 cells HPF (0-1); Macrocytosis SLIGHT = 6-15 cells HPF (0-5); Nucleated RBC (Manual Ct) 1 % (0); Platelet Adequacy Comment Platelets Decreased; Polychromasia SLIGHT = 2-3 cells HPF (0-2); Smudge Cells 0.9 %
[2024-12-03 12:00] LABS: HBSAB Concentration Less than 8.00 mIU/mL; Hep B Core Total Ab NONREACTIVE (NonReactive); Hep B Core Total Index 0.06 S/CO (0-0.79); Hep B Surf Ag NONREACTIVE S/CO (NonReactive); Hep C IgG Ab NONREACTIVE S/CO (NonReactive); Hep C Index 0.06 S/CO (0-0.79)
[2024-12-03] MEDS: Albumin 25% 25 GM (100 mL) BOT IVPB SCH (12:06)
[2024-12-03] MEDS: EPOETIN ALFA-EPBX (ESRD) 10,000 UNITS/ML VIAL SC SCH (12:06)
[2024-12-03 14:53] VITALS: BMI 39.4
[2024-12-03 21:28] LABS: INR-International Normal Ratio 1.5; PTT 33.4 sec (22.9-36.1); Prothrombin Time 18.5 sec (12.0-14.7)
[2024-12-03 21:37] LABS: ALT (SGPT) 66 U/L (Less than 34); AST (SGOT) 42 U/L (11-34); Albumin 3.1 g/dL (3.1-4.5); Alkaline Phosphatase 243 U/L (40-110); Anion Gap 18 mmol/L (10-20); BUN (Urea Nitrogen) 92 mg/dL (9.8-20.1); Bilirubin, Total 1.9 mg/dL (0.3-1.2); Calc. Creatinine Clearance 39 mL/min (70-130); Calcium 9.2 mg/dL (7.8-10.44); Carbon Dioxide 14 mmol/L (23-31); Chloride 102 mmol/L (98-107); Globulin 2.9 g/dL (2.4-3.5); Glucose 120 mg/dL (80-115); Magnesium 2.5 mg/dL (1.6-2.6); Potassium 4.2 mmol/L (3.5-5.1); Sodium 130 mmol/L (136-145)
[2024-12-03 21:39] LABS: Macrocytosis SLIGHT = 6-15 cells HPF (0-5); Platelet Adequacy Comment Platelets Decreased; Polychromasia SLIGHT = 2-3 cells HPF (0-2)
[2024-12-03 21:40] LABS: Hematocrit 22.4 % (36.0-47.0); Hemoglobin 7.2 g/dL (12.0-16.0); Mean Corpuscular Hemoglobin 32.3 pg (27.0-31.0); Mean Corpuscular Volume 100.4 fL (78.0-98.0); Platelet Count 62 10x3/uL (130-400); Red Blood Cell (RBC) Count 2.23 mill/uL (4.20-5.40); White Blood Cell (WBC) Count 23.03 10x3/uL (4.8-10.8)
[2024-12-04] MEDS: Water For Inject, Bacteriostat 30 ML ONE ×2 (00:01→07:59)
[2024-12-04 01:53] LABS: Base Excess (BEa) -14.9 mEq/L (-2.0 to +3.0); CO2 Tension 42.5 mmHg (35.0-45.0); Calcium, Ionized (arterial) 1.31 mmol/L (1.12-1.30); Hematocrit-ABG 24 % (36.0-47.0); Hemoglobin (Hb) 8.0 g/dL (12.0-16.0); Potassium - ABG Lab 4.01 mmol/L (3.70-5.30)
[2024-12-04 01:54] LABS: Actual Bicarbonate (HCO3a) 13.4 mEq/L (22-28); O2 Tension (PaO2), arterial 57.0 mmHg (> 80.0); Puncture Site Right Radial artery; pH, Arterial 7.118 (7.35-7.45)
[2024-12-04 01:55] LABS: ALV-art Gradient 602.875 mmHg (0-20)
[2024-12-04] MEDS: Sodium Bicarb 50 MEQ/50 ML Abboject 8.4% SYRINGE IVP SCH (02:12)
[2024-12-04] MEDS: Sodium Bicarb 50 MEQ/50 ML Abboject 8.4% SYRINGE ONE (03:20)
[2024-12-04] MEDS: Vasopressin In 0.9 % NaCl 100 ML IV SCH (03:25)
[2024-12-04 04:36] LABS: Hematocrit 21.1 % (36.0-47.0); Hemoglobin 7.1 g/dL (12.0-16.0); Mean Corpuscular Hemoglobin 32.3 pg (27.0-31.0); Mean Corpuscular Volume 95.9 fL (78.0-98.0); Platelet Count 51 10x3/uL (130-400); Red Blood Cell (RBC) Count 2.20 mill/uL (4.20-5.40); White Blood Cell (WBC) Count 16.01 10x3/uL (4.8-10.8)
[2024-12-04 04:37] LABS: ALT (SGPT) 59 U/L (Less than 34); AST (SGOT) 48 U/L (11-34); Albumin 3.0 g/dL (3.1-4.5); Alkaline Phosphatase 230 U/L (40-110); Anion Gap 15 mmol/L (10-20); BUN (Urea Nitrogen) 84 mg/dL (9.8-20.1); Bilirubin, Total 2.3 mg/dL (0.3-1.2); Calc. Creatinine Clearance 47 mL/min (70-130); Calcium 8.7 mg/dL (7.8-10.44); Carbon Dioxide 20 mmol/L (23-31); Chloride 102 mmol/L (98-107); Globulin 2.3 g/dL (2.4-3.5); Glucose 182 mg/dL (80-115); Magnesium 2.2 mg/dL (1.6-2.6); Potassium 3.7 mmol/L (3.5-5.1); Sodium 133 mmol/L (136-145)
[2024-12-04 05:18] LABS: Anisocytosis SLIGHT = 6-15 cells HPF (0-5); Nucleated RBC (Manual Ct) 3 % (0); Platelet Adequacy Comment Platelets Decreased; Polychromasia SLIGHT = 2-3 cells HPF (0-2)
[2024-12-04 05:34] VITALS: BMI 40.0
[2024-12-04] MEDS ORDERED: CRRT- NOTIFY PHARMACY FS PRN (06:45)
[2024-12-04 06:49] LABS: Actual Bicarbonate (HCO3a) 18.4 mEq/L (22-28); Base Excess (BEa) -9.9 mEq/L (-2.0 to +3.0); CO2 Tension 53.9 mmHg (35.0-45.0); Calcium, Ionized (arterial) 1.26 mmol/L (1.12-1.30); Hematocrit-ABG 24 % (36.0-47.0); Hemoglobin (Hb) 8.2 g/dL (12.0-16.0); Potassium - ABG Lab 3.88 mmol/L (3.70-5.30)
[2024-12-04 06:54] LABS: ALV-art Gradient 607.625 mmHg (0-20); O2 Tension (PaO2), arterial 38.0 mmHg (> 80.0); Puncture Site Right Radial artery; pH, Arterial 7.152 (7.35-7.45)
[2024-12-04 08:26] VITALS: TEMP 97.4
[2024-12-07 11:30] LABS: pH, Arterial 7.204 (7.35-7.45)
== END 2024-12-04 15:00 | disposition expired | DRG 870 ==
LOC: ERS 20:25 → CCU 21:53
PROVIDERS: ADMIT Student in an Organized Health Care Education/Training Program; ATTEND Family Medicine
PROC: 5A1955Z Respiratory Ventilation, Greater than 96 Consecutive Hours (ICD-10-PCS; principal; 2024-11-23)
PROC: 0BH17EZ Insertion of Endotracheal Airway into Trachea, Via Natural or Artificial Opening (ICD-10-PCS; 2024-11-23)
PROC: 3E03329 Introduction of Other Anti-infective into Peripheral Vein, Percutaneous Approach (ICD-10-PCS; 2024-11-23)
PROC: 3E033XZ Introduction of Vasopressor into Peripheral Vein, Percutaneous Approach (ICD-10-PCS; 2024-11-23)
PROC: 4A133R1 Monitoring of Arterial Saturation, Peripheral, Percutaneous Approach (ICD-10-PCS; 2024-11-23)
PROC: 03HY32Z Insertion of Monitoring Device into Upper Artery, Percutaneous Approach (ICD-10-PCS; 2024-11-23)
PROC: 4A133B1 Monitoring of Arterial Pressure, Peripheral, Percutaneous Approach (ICD-10-PCS; 2024-11-23)
PROC: 4A133J1 Monitoring of Arterial Pulse, Peripheral, Percutaneous Approach (ICD-10-PCS; 2024-11-23)
PROC: 30233J1 Transfusion of Nonautologous Serum Albumin into Peripheral Vein, Percutaneous Approach (ICD-10-PCS; 2024-11-24)
PROC: 0T9B70Z Drainage of Bladder with Drainage Device, Via Natural or Artificial Opening (ICD-10-PCS; 2024-11-24)
PROC: 0DH67UZ Insertion of Feeding Device into Stomach, Via Natural or Artificial Opening (ICD-10-PCS; 2024-11-28)
PROC: 3E0G76Z Introduction of Nutritional Substance into Upper GI, Via Natural or Artificial Opening (ICD-10-PCS; 2024-11-28)
PROC: 30233N1 Transfusion of Nonautologous Red Blood Cells into Peripheral Vein, Percutaneous Approach (ICD-10-PCS; 2024-11-29)
PROC: 0D9670Z Drainage of Stomach with Drainage Device, Via Natural or Artificial Opening (ICD-10-PCS; 2024-11-29)
PROC: 02H633Z Insertion of Infusion Device into Right Atrium, Percutaneous Approach (ICD-10-PCS; 2024-12-03)
PROC: B5181ZA Fluoroscopy of Superior Vena Cava using Low Osmolar Contrast, Guidance (ICD-10-PCS; 2024-12-03)
PROC: 06HY33Z Insertion of Infusion Device into Lower Vein, Percutaneous Approach (ICD-10-PCS; 2024-12-03)
PROC: 5A1D90Z Performance of Urinary Filtration, Continuous, Greater than 18 hours Per Day (ICD-10-PCS; 2024-12-03)
PROC: 3E04329 Introduction of Other Anti-infective into Central Vein, Percutaneous Approach (ICD-10-PCS; 2024-12-03)
PROC: 3E043XZ Introduction of Vasopressor into Central Vein, Percutaneous Approach (ICD-10-PCS; 2024-12-03)
PROC: 3E04329 Introduction of Other Anti-infective into Central Vein, Percutaneous Approach (ICD-10-PCS; 2024-12-03)
PROC: 3E043XZ Introduction of Vasopressor into Central Vein, Percutaneous Approach (ICD-10-PCS; 2024-12-03)
DX: A41.52 Sepsis due to Pseudomonas (principal); G93.41 Metabolic encephalopathy; R65.21 Severe sepsis with septic shock; J80 Acute respiratory distress syndrome; J15.61 Pneumonia due to Acinetobacter baumannii; I50.33 Acute on chronic diastolic (congestive) heart failure; N39.0 Urinary tract infection, site not specified; N17.9 Acute kidney failure, unspecified; Z68.41 Body mass index [BMI] 40.0-44.9, adult; I48.20 Chronic atrial fibrillation, unspecified; K62.5 Hemorrhage of anus and rectum; D62 Acute posthemorrhagic anemia; I5A Non-ischemic myocardial injury (non-traumatic); E87.1 Hypo-osmolality and hyponatremia; E87.21 Acute metabolic acidosis; Z16.24 Resistance to multiple antibiotics; Z66 Do not resuscitate; Z51.5 Encounter for palliative care; E11.649 Type 2 diabetes mellitus with hypoglycemia without coma; E03.9 Hypothyroidism, unspecified; L89.152 Pressure ulcer of sacral region, stage 2; E80.6 Other disorders of bilirubin metabolism; E66.01 Morbid (severe) obesity due to excess calories; K52.89 Other specified noninfective gastroenteritis and colitis; G47.33 Obstructive sleep apnea (adult) (pediatric); F41.9 Anxiety disorder, unspecified; E88.09 Other disorders of plasma-protein metabolism, not elsewhere classified; D69.59 Other secondary thrombocytopenia; A41.54 Sepsis due to Acinetobacter baumannii; D72.10 Eosinophilia, unspecified; D63.1 Anemia in chronic kidney disease; R74.01 Elevation of levels of liver transaminase levels; N18.30 Chronic kidney disease, stage 3 unspecified; F32.A Depression, unspecified; Z79.01 Long term (current) use of anticoagulants; Z79.899 Other long term (current) drug therapy; Z79.4 Long term (current) use of insulin; Z79.2 Long term (current) use of antibiotics; Z98.890 Other specified postprocedural states; Z90.49 Acquired absence of other specified parts of digestive tract; Z85.42 Personal history of malignant neoplasm of other parts of uterus; Z90.710 Acquired absence of both cervix and uterus; Z91.011 Allergy to milk products; Z79.52 Long term (current) use of systemic steroids; Z88.6 Allergy status to analgesic agent; Z79.890 Hormone replacement therapy; Z86.79 Personal history of other diseases of the circulatory system; Z99.2 Dependence on renal dialysis
CPT/HCPCS: 31500; 36415; 36416; 36430; 36556; 36600; 51702; 71045; 71275; 74177; 76705; 80053; 80202; 81001; 82805; 83605; 83735; 83880; 84100; 84145; 84484; 85025; 85610; 85730; 86141; 86704; 86706; 86803; 86850; 86900; 86901; 87040; 87070; 87077; 87086; 87149; 87186; 87205; 87324; 87328; 87329; 87340; 87449; 87505; 90945; 93005; 93306; 94002; 94003; 94640; 96365; 96368; 96374; 96375; 96376; 97139; J0295; J0692; J1160; J1308; J1644; J1720; J1815; J1940; J2060; J2250; J2270; J2470; J2704; J3373; J3375; J3475; J3480; J3490; J7030; J7042; J7050; J7070; J7120; J7620; J7626; J7999; P9016; P9047; Q5105; Q9967